=== PATIENT | male | born 1985 | race Two or more races ===

== ENCOUNTER 2018-02-05 14:46 | Emergency (ER) | payer SELFPAY ==
[2018-02-05] MEDS ORDERED: Sodium Chloride 0.9% 1,000 ML IV ONE (15:25)
[2018-02-05] MEDS ORDERED: Multivitamin Inj 10 ML, Thiamine HCL 100 MG, Magnesium Sulfate 2 GM, Folic Acid 1 MG in... IV ONE (15:29)
--- NOTE | 2018-02-05 15:32 | ED Physician Chart ---
ED Chief Complaint/HPI - Patient Information Date Seen:: 02/05/18 Time Seen:: 15:15 Chief Complaint:: epigastric pain History of Present Illness:: Patient brought in by EMT ambulance complaining of epigastric pain. Patient drank 1 pint of whiskey this morning. He vomited twice and had 3 times diarrhea today. Historian:: Patient ED Review of Systems - Review of Systems General/Constitutional: No fever, No chills, No weight loss, No weakness, No diaphoresis, No edema, No loss of appetite Skin: No skin lesions, No rash, No bruising Head: No headache, No light-headedness Eyes: No loss of vision, No pain, No diplopia ENT: No earache, No nasal drainage, No sore throat, No tinnitus Neck: No neck pain, No swelling, No thyromegaly, No stiffness, No mass noted Cardio Vascular: No chest pain, No palpitations, No PND, No orthopnea, No edema Pulmonary: No SOB, No cough, No sputum, No wheezing GI: Nausea, Vomiting, Diarrhea, No pain, No melena, No hematochezia, No constipation, No hematemesis G/U: No dysuria, No frequency, No hematuria Musculoskeletal: No bone or joint pain, No back pain, No muscle pain Endocrine: No polyuria, No polydipsia Psychiatric: No prior psych history, No depression, No anxiety, No suicidal ideation Hematopoietic: No bruising, No lymphadenopathy Allergic/Immuno: No urticaria, No angioedema Neurological: No syncope, No focal symptoms, No weakness, No paresthesia, No headache, No seizure, No dizziness, No confusion, No vertigo ED Past Medical History - Past Medical History Past Medical History: DM Family History: Diabetes Melitus Social History: Non Smoker, Alcohol Surgical History: other (right eye for cyst at age 1) Psychiatricy History: None Medication: Reviewed Family Medical History - Family Member Father Ethnicity: Living Status: Other Medical History: PANCREATIC CA ED Physical Exam - Physical Examination General/Constitutional: Awake, Well-developed, well-nourished, Alert, No distress, GCS 15, Non-toxic appearing, Ambulatory Head: Atraumatic Eyes: Lids, conjuctiva normal, PERRL, EOMI Skin: Nl inspection, No rash, No skin lesions, No ecchymosis, Well hydrated, No lymphadenopathy ENMT: External ears, nose nl, Nasal exam nl, Lips, teeth, gums nl Neck: Nontender, Full ROM w/o pain, No JVD, No nuchal rigidity, No bruit, No mass, No stridor Respiratory: Nl effort/Exclusion, Clear to Auscultation, No Wheeze/Rhonchi/Rales Cardio Vascular: RRR, No murmur, gallop, rubs, NL S1 S2 GI: No organomegaly, No hernia, Normal BS's, Nondistended, No mass/bruits, No McBurney tenderness Other GI comments:: Epigastric tenderness : No CVA tenderness Extremities: No tenderness or effusion, Full ROM, normal strength in all extremities, No edema, Normal digits & nails Neuro/Psych: Alert/oriented, DTR's symmetric, Normal sensory exam, Normal motor strength, Judgement/insight normal, Mood normal, Normal gait, No focal deficits Misc: Normal back, No paraspinal tenderness ED Labs/Radiology/EKG Results - Lab Results Results: Laboratory Results - last 24 hr 02/05/18 02/05/18 02/05/18 15:40 15:40 15:40 WBC 4.6 L RBC 4.69 Hgb 15.9 Hct 46.6 MCV 99.3 H MCH 33.9 H MCHC Differential 34.2 RDW 13.6 Plt Count 208 MPV 6.8 Neutrophils % 64.2 Lymphocytes % 22.5 Monocytes % 11.1 H Eosinophils % 0.5 Basophils % 1.7 Sodium 142 Potassium 3.8 Chloride 101 Carbon Dioxide 30.1 Anion Gap 14.7 BUN 6 L Creatinine 0.6 L Est GFR ( Amer) > 60.0 Est GFR (Non-Af Amer) > 60.0 BUN/Creatinine Ratio 10.0 Glucose 118 H Calcium 9.0 Magnesium 2.0 Lipase Ethyl Alcohol 465 H 02/05/18 15:40 WBC RBC Hgb Hct MCV MCH MCHC Differential RDW Plt Count MPV Neutrophils % Lymphocytes % Monocytes % Eosinophils % Basophils % Sodium Potassium Chloride Carbon Dioxide Anion Gap BUN Creatinine Est GFR ( Amer) Est GFR (Non-Af Amer) BUN/Creatinine Ratio Glucose Calcium Magnesium Lipase 34 Ethyl Alcohol ED Assessment - Assessment General Assessment: Patient ambulated normally in the emergency department and spoke normally without any slurring of speech. Patient requested Librium and I will give him 50 mg orally before discharge ED Septic Shock - . Is Septic Shock (SBP<90, OR Lactate>4 mmol\L) present?: No ED Reassessment (Disposition) - Reassessment Reassessment Condition:: Improved - Diagnosis Diagnosis:: Acute alcohol intoxication; acute and chronic alcohol abuse - Aftercare/Follow up Instructions Aftercare/Follow-Up Instructions:: Refer to Discharge Instructions - Patient Disposition Discharge/Transfer:: Home Condition at Disposition:: Stable, Improved
[2018-02-05 15:54] LABS: % BASOPHILS 1.7 % (0.0-2.0); % EOSINOPHILS 0.5 % (0.0-5.0); % LYMPHOCYTES 22.5 % (20.0-50.0); % MONOCYTES 11.1 % (2.0-10.0); % NEUTROPHILS 64.2 % (40.0-80.0); BASOPHILE ABSOLUTE 0.1 Th/cumm (0-0.2); HEMATOCRIT 46.6 % (41.0-60); HEMOGLOBIN 15.9 gm/dL (12-16); MEAN CELL VOLUME 99.3 fl (80-99); MEAN CORPUSCULAR HEMOGLOBIN 33.9 pg (26.0-30.0); MEAN CORPUSCULAR HGB CONC 34.2 pg (28.0-36.0); MEAN PLATELET VOLUME 6.8 fl; MONOCYTE ABSOLUTE 0.5 Th/cmm (0.3-1.0); PLATELET COUNT 208 Th/cmm (150-400); RED BLOOD COUNT 4.69 Mil/cmm (4.30-5.70); RED CELL DISTRIBUTION WIDTH 13.6 % (11.5-20.0); WHITE BLOOD COUNT 4.6 Th/cmm (4.8-10.8)
[2018-02-05 16:10] LABS: ANION GAP 14.7 (7.0-16.0); BUN - UREA NITROGEN 6 mg/dL (7-25); CARBON DIOXIDE 30.1 mEq/L (21.0-31.0); CHLORIDE 101 mEq/L (98-107); CREATININE - SERUM 0.6 mg/dL (0.7-1.3); GFR AFRICAN-AMERICAN > 60.0 ml/min (>90); GFR NON AFRICAN-AMERICAN > 60.0 ml/min; GLUCOSE 118 mg/dL (70-105); POTASSIUM SERUM 3.8 mEq/L (3.5-5.1); SODIUM SERUM 142 mEq/L (136-145)
== END 2018-02-05 20:10 | disposition home or self-care (01) ==
LOC: ER 14:46
DX: F10.129 Alcohol abuse with intoxication, unspecified (principal); Y90.8 Blood alcohol level of 240 mg/100 ml or more; R10.13 Epigastric pain; R11.2 Nausea with vomiting, unspecified; R19.7 Diarrhea, unspecified; E11.9 Type 2 diabetes mellitus without complications
CPT/HCPCS: 99285; 96365; 96366; 36415; 85025; 80320; 83690; 83735; 80048; J3411; J3475; J7030; X6598; Z7610

== ENCOUNTER 2018-02-08 13:28 | Inpatient (IN) | payer MEDICAID ==
[2018-02-08] MEDS ORDERED: Multivitamin Inj 10 ML, Thiamine HCL 100 MG, Magnesium Sulfate 2 GM, Folic Acid 1 MG in... IV ONE (13:51)
[2018-02-08] MEDS ORDERED: Thiamine 100 mg/mL 2mL Vial ONE (14:13)
[2018-02-08] MEDS ORDERED: Magnesium Sulfate 1 gm/2 mL 2mL Vial IV ONE (14:14)
[2018-02-08 14:18] LABS: % BASOPHILS 1.5 % (0.0-2.0); % EOSINOPHILS 0.6 % (0.0-5.0); % LYMPHOCYTES 20.1 % (20.0-50.0); % MONOCYTES 10.3 % (2.0-10.0); % NEUTROPHILS 67.5 % (40.0-80.0); BASOPHILE ABSOLUTE 0.1 Th/cumm (0-0.2); HEMATOCRIT 43.4 % (41.0-60); MEAN CELL VOLUME 97.8 fl (80-99); MEAN CORPUSCULAR HEMOGLOBIN 33.8 pg (26.0-30.0); MEAN CORPUSCULAR HGB CONC 34.6 pg (28.0-36.0); MEAN PLATELET VOLUME 7.2 fl; MONOCYTE ABSOLUTE 0.5 Th/cmm (0.3-1.0); NEUTROPHILE ABSOLUTE 3.2 Th/cmm (1.8-8.0); PLATELET COUNT 140 Th/cmm (150-400); RED BLOOD COUNT 4.44 Mil/cmm (4.30-5.70); RED CELL DISTRIBUTION WIDTH 13.6 % (11.5-20.0); WHITE BLOOD COUNT 4.8 Th/cmm (4.8-10.8)
[2018-02-08] MEDS ORDERED: Multivitamin Inj 10 mL Vial IV ONE (14:18)
[2018-02-08 14:25] LABS: ALB/GLOB RATIO 1.3 (1.0-1.8); ALKALINE PHOSPHATASE 90 U/L (34-104); AMYLASE SERUM 185 U/L (29-103); ANION GAP 14.2 (7.0-16.0); BILIRUBIN,TOTAL 2.1 mg/dL (0.3-1.0); BUN - UREA NITROGEN 9 mg/dL (7-25); CALCIUM SERUM 8.8 mg/dL (8.6-10.3); CARBON DIOXIDE 28.4 mEq/L (21.0-31.0); CHLORIDE 102 mEq/L (98-107); CREATININE - SERUM 0.6 mg/dL (0.7-1.3); GFR AFRICAN-AMERICAN > 60.0 ml/min (>90); GFR NON AFRICAN-AMERICAN > 60.0 ml/min; GLUCOSE 119 mg/dL (70-105); LIPASE 41 U/L (11-82); MAGNESIUM 1.7 mg/dL (1.9-2.7); PHOSPHOROUS 3.6 mg/dL (2.5-5.0); POTASSIUM SERUM 3.6 mEq/L (3.5-5.1); SGOT 350 U/L (13-39); SGPT/ALT 110 U/L (7-52); SODIUM SERUM 141 mEq/L (136-145); TOTAL PROTEIN,SERUM 7.2 gm/dL (6.0-8.3)
[2018-02-08 14:49] LABS: INR 1.12 (0.5-1.4); PROTHROMBIN TIME (TEST) 11.5 SECONDS (9.5-11.5)
[2018-02-08] MEDS ORDERED: Pantoprazole 80 MG in Sodium Chloride 0.9% 100 ML IV ONE (14:49)
[2018-02-08] MEDS ORDERED: Pantoprazole 80 MG in Sodium Chloride 0.9% 100 ML IV SCH ×2 (15:00→20:15)
[2018-02-08 15:42] LABS: URINE BILIRUBIN MODERATE (NEGATIVE); URINE BLOOD NEGATIVE (NEGATIVE); URINE GLUCOSE (UA) NEGATIVE (NEGATIVE); URINE KETONE NEGATIVE (NEGATIVE); URINE LEUKOCYTE ESTERASE NEGATIVE (NEGATIVE); URINE MICROSCOPIC INDICATED? YES; URINE NITRATE POSITIVE (NEGATIVE); URINE PROTEIN 100 mg/dL (NEGATIVE); URINE SOURCE CLEAN C; URINE UROBILINOGEN >=8.0 E.U./dL (0.2 - 1.0)
[2018-02-08 15:46] LABS: URINE CLARITY HAZY (CLEAR); URINE COLOR YELLOW
[2018-02-08 15:52] LABS: URINE BACTERIA 2+ /hpf (NONE SEEN); URINE EPITHELIAL CELLS FEW /lpf (FEW); URINE RBC 0-2 /hpf (0-5)
[2018-02-08] MEDS ORDERED: Ciprofloxacin 400mg Premix PB 400 MG/200 ML BAG IV ONE (16:00)
--- NOTE | 2018-02-08 17:12 | ED Physician Chart ---
ED Chief Complaint/HPI - Patient Information Date Seen:: 02/08/18 Time Seen:: 13:56 Chief Complaint:: epigastric pain & hematemesis History of Present Illness:: epigastric pain & hematemesis in an alcoholic without a h/o varices (hx per fiance and patient). no melena or blood per rectum. Allergies:: Allergies Allergy/AdvReac Type Severity Reaction Status Date / Time Sulfa (Sulfonamide Allergy Verified 02/05/18 15:32 Antibiotics) Vitals:: Vital Signs - 8 hr 02/08/18 13:56 Temp 98.0 F HR 89 RR 17 BP 114/77 O2 Sat % 94 Historian:: Patient, Family Member, Friend, Medical Records Review:: Nurse's Note Reviewed ED Review of Systems - Review of Systems General/Constitutional: No fever, No chills, No weight loss, No weakness, No diaphoresis, No edema, No loss of appetite Skin: No skin lesions, No rash, No bruising Head: No headache, No light-headedness Eyes: No loss of vision, No pain, No diplopia ENT: No earache, No nasal drainage, No sore throat, No tinnitus Neck: No neck pain, No swelling, No thyromegaly, No stiffness, No mass noted Cardio Vascular: No chest pain, No palpitations, No PND, No orthopnea, No edema Pulmonary: No SOB, No cough, No sputum, No wheezing GI: Nausea, Vomiting, No diarrhea, Pain, No melena, No hematochezia, No constipation, Hematemesis G/U: No dysuria, No frequency, No hematuria Musculoskeletal: No bone or joint pain, No back pain, No muscle pain Endocrine: No polyuria, No polydipsia Psychiatric: No prior psych history, No depression, No anxiety, No suicidal ideation Hematopoietic: No bruising, No lymphadenopathy Allergic/Immuno: No urticaria, No angioedema Neurological: No syncope, No focal symptoms, No weakness, No paresthesia, No headache, No seizure, No dizziness, No confusion, No vertigo ED Past Medical History - Past Medical History Obtainable: Yes Past Medical History: Other (alcoholism; delirium tremens but has never seized or had respiratory arrest; h/o UGI bleed in the past (no scopes per fiance)) Family Medical History - Family Member Father Ethnicity: Living Status: ED Physical Exam - Physical Examination General/Constitutional: Awake, Alert, No distress, GCS 15, Non-toxic appearing, Ambulatory Other Gen/Cons comments:: overweight. smell of strong liquor on his breath. c/o epigastric pain. Head: Atraumatic Eyes: Lids, conjuctiva normal, PERRL, EOMI Skin: Nl inspection, No rash, No skin lesions, No ecchymosis, Well hydrated, No lymphadenopathy ENMT: External ears, nose nl Neck: Nontender, Full ROM w/o pain, No JVD, No nuchal rigidity, No bruit, No mass, No stridor Respiratory: Nl effort/Exclusion, Clear to Auscultation, No Wheeze/Rhonchi/Rales Cardio Vascular: RRR, No murmur, gallop, rubs, NL S1 S2 GI: No tenderness/rebounding/guarding, No organomegaly, No hernia, Normal BS's, Nondistended, No mass/bruits, No McBurney tenderness, Rectum exam nl Other GI comments:: No peritoneal signs. Nonspecific epigastric pain to palpation. Fat. No fluid wave appreciated. Hemoccult negative (with no obvious stool on my glove). : No CVA tenderness Extremities: No tenderness or effusion, Full ROM, normal strength in all extremities, No edema, Normal digits & nails Neuro/Psych: Alert/oriented, Normal sensory exam, Normal motor strength, Judgement/insight normal, Mood normal, Normal gait, No focal deficits Other Neuro/Psych comments:: fine tremor. Misc: Normal back, No paraspinal tenderness ED Labs/Radiology/EKG Results - Lab Results Results: Laboratory Tests 02/08/18 02/08/18 02/08/18 13:50 13:50 13:50 WBC 4.8 RBC 4.44 Hgb 15.0 Hct 43.4 MCV 97.8 MCH 33.8 H MCHC Differential 34.6 RDW 13.6 Plt Count 140 L MPV 7.2 Neutrophils % 67.5 Lymphocytes % 20.1 Monocytes % 10.3 H Eosinophils % 0.6 Basophils % 1.5 PT INR PTT (Actin FS) Sodium 141 Potassium 3.6 Chloride 102 Carbon Dioxide 28.4 Anion Gap 14.2 BUN 9 Creatinine 0.6 L Est GFR ( Amer) > 60.0 Est GFR (Non-Af Amer) > 60.0 BUN/Creatinine Ratio 15.0 Glucose 119 H Calcium 8.8 Phosphorus 3.6 Magnesium 1.7 L Total Bilirubin 2.1 H AST 350 H ALT 110 H Alkaline Phosphatase 90 Total Protein 7.2 Albumin 4.0 L Globulin 3.2 Albumin/Globulin Ratio 1.3 Amylase 185 H Lipase 41 TSH Urine Source Urine Color Urine Clarity Urine pH Ur Specific [place] Urine Protein Urine Glucose (UA) Urine Ketones Urine Blood Urine Nitrate Urine Bilirubin Urine Ictotest Urine Urobilinogen Ur Leukocyte Esterase Urine RBC Urine WBC Ur Epithelial Cells Urine Bacteria Urine Mucus Acetaminophen Ethyl Alcohol 392 H Blood Type O POSITIVE Antibody Screen NEGATIVE 02/08/18 02/08/18 02/08/18 13:50 15:00 15:05 WBC RBC Hgb Hct MCV MCH MCHC Differential RDW Plt Count MPV Neutrophils % Lymphocytes % Monocytes % Eosinophils % Basophils % PT 11.5 INR 1.12 PTT (Actin FS) 27.1 Sodium Potassium Chloride Carbon Dioxide Anion Gap BUN Creatinine Est GFR ( Amer) Est GFR (Non-Af Amer) BUN/Creatinine Ratio Glucose Calcium Phosphorus Magnesium Total Bilirubin AST ALT Alkaline Phosphatase Total Protein Albumin Globulin Albumin/Globulin Ratio Amylase Lipase TSH 1.57 Urine Source CLEAN C Urine Color YELLOW Urine Clarity HAZY Urine pH 8.0 Ur Specific [place] 1.020 Urine Protein 100 H Urine Glucose (UA) NEGATIVE Urine Ketones NEGATIVE Urine Blood NEGATIVE Urine Nitrate POSITIVE H Urine Bilirubin MODERATE H Urine Ictotest Not Reportable Urine Urobilinogen >=8.0 H Ur Leukocyte Esterase NEGATIVE Urine RBC 0-2 H Urine WBC 2-5 Ur Epithelial Cells FEW Urine Bacteria 2+ H Urine Mucus MANY Acetaminophen Ethyl Alcohol Blood Type Antibody Screen 02/08/18 15:05 WBC RBC Hgb Hct MCV MCH MCHC Differential RDW Plt Count MPV Neutrophils % Lymphocytes % Monocytes % Eosinophils % Basophils % PT INR PTT (Actin FS) Sodium Potassium Chloride Carbon Dioxide Anion Gap BUN Creatinine Est GFR ( Amer) Est GFR (Non-Af Amer) BUN/Creatinine Ratio Glucose Calcium Phosphorus Magnesium Total Bilirubin AST ALT Alkaline Phosphatase Total Protein Albumin Globulin Albumin/Globulin Ratio Amylase Lipase TSH Urine Source Urine Color Urine Clarity Urine pH Ur Specific [place] Urine Protein Urine Glucose (UA) Urine Ketones Urine Blood Urine Nitrate Urine Bilirubin Urine Ictotest Urine Urobilinogen Ur Leukocyte Esterase Urine RBC Urine WBC Ur Epithelial Cells Urine Bacteria Urine Mucus Acetaminophen < 10.0 L Ethyl Alcohol Blood Type Antibody Screen ED Assessment - Assessment General Assessment: 17:12 p.m. note: patient is feeling better. He has no tremor and his heart rate is 94. Assessment/Comments:: limited abdomen ultrasound: enlarged liver increased in echogeniticity; increased attenuation limits imaging of the posterior liver. Portal vein flow is hepatopedal. distended gallbladder measure 10.12 x 4.2 x 5.0 cm. Positive swift's. 1.5 cm non mobile gallbladder stone with sludge. Mostly obscured pancreatic head measuring approximately 2.3 cm. called and spoke with Dr. Garcia at 6:45 p.m. to admit the patient to the ICU.* * EKG from 18:47:43 p.m. on 02/08/2018: normal sinus rhythm, flipped t wave in AVR and V1. ED Septic Shock - . Is Septic Shock (SBP<90, OR Lactate>4 mmol\L) present?: No - <6hrs of presentation: Vital Signs: Vital Signs - 8 hr 02/08/18 13:56 Temp 98.0 F HR 89 RR 17 BP 114/77 O2 Sat % 94 ED Reassessment (Disposition) - Reassessment Reassessment Condition:: Improved - Diagnosis Diagnosis:: Upper GI bleed, no h/o varices Alcoholism Distended gallbladder with gallstone Elevated amylase and liver function tests Urinary tract infection Slight thrombocytopenia - Patient Disposition Discharge/Transfer:: Acute Care w/in this hosp Accepting Physician:: Dr. Garcia Time Called:: 18:45 p.m. Time Responded:: 18:45 Admitted to:: ICU Condition at Disposition:: Stable, Improved
[2018-02-08] MEDS ORDERED: Piperacillin Sodium/Tazobact 3.375 gm Vial IV ONE (17:26)
[2018-02-08 17:32] LABS: AMPHETAMINE URINE NEGATIVE (NEGATIVE); BARBITURATES URINE NEGATIVE (NEGATIVE); BENZODIAZEPINES QUAL URINE POSITIVE (NEGATIVE); CANNABINOID THC POSITIVE (NEGATIVE); COCAINE METABOLITE QUAL URINE NEGATIVE (NEGATIVE); METHADONE URINE NEGATIVE (NEGATIVE); METHAMPHETAMINES QUAL URINE NEGATIVE (NEGATIVE); OPIATES (MORPHINE) QUAL. URINE NEGATIVE (NEGATIVE); PHENCYCLIDINE (PCP) URINE NEGATIVE (NEGATIVE); TRICYCLICS (TCA) QUAL. URINE NEGATIVE (NEGATIVE)
--- NOTE | 2018-02-08 20:43 | Consultation ---
Consult Note - Consult Note Service Date: 02/08/18 Referring Physician: Rose Garcia Consult Note: PHYSICIAN Consultation Note: Date of Admission: 02/08/18 Purpose of Consultation: UTI Chief Complaint: Patient KATHY NIEVES was admitted to location Intensive Care Unit with GI BLEED, UTI, ABDOMINAL PAIN. History of Present Illness: 32-year-old male with a past medical history of for alcohol abuse, cirrhosis, history of variceal bleeding, admitted for abdominal pain and hematemesis. On initial evaluation patient was afebrile and WBC count 4800. Urinalysis on the HPI. He was started on Zosyn and ID consult was called for antibiotic management. Past Medical History: Allergies Allergy/AdvReac Type Severity Reaction Status Date / Time Sulfa (Sulfonamide Allergy Verified 02/05/18 15:32 Antibiotics) Vital Signs Temp 98.0 F 02/08/18 19:00 Pulse 80 02/08/18 19:47 Resp 16 02/08/18 19:47 BP 107/70 02/08/18 19:47 Pulse Ox 94 02/08/18 19:47 Intake & Output 02/08/18 02/08/18 02/09/18 06:59 18:59 06:59 Intake Total 1150 Balance 1150 Weight (lbs) 83.915 kg 83.915 kg Intake: Intake, IV Amount 1150 Multivitamin Inj 10 ml 1000 Thiamine HCL 100 mg Magnesium Sulfate 2 gm Folic Acid 1 mg In Sodium Chloride 0.9% 1,000 ml @ 250 mls/hr IV ONCE ONE Rx#:[id number] Pantoprazole 80 mg In 100 Sodium Chloride 0.9% 100 ml @ 10 mls/hr IV Q10H EFREN Rx#:[id number] Piperacillin Sodium/ 50 Tazobact 3.375 gm In Sodium Chloride 0.9% 50 ml @ 100 mls/hr IV X1 ONE Rx#:[id number] Other: Weight Source Patient stated Patient stated Laboratory Results - last 24 hr 02/08/18 02/08/18 02/08/18 13:50 13:50 13:50 WBC 4.8 RBC 4.44 Hgb 15.0 Hct 43.4 MCV 97.8 MCH 33.8 H MCHC Differential 34.6 RDW 13.6 Plt Count 140 L MPV 7.2 Neutrophils % 67.5 Lymphocytes % 20.1 Monocytes % 10.3 H Eosinophils % 0.6 Basophils % 1.5 PT INR PTT (Actin FS) Sodium 141 Potassium 3.6 Chloride 102 Carbon Dioxide 28.4 Anion Gap 14.2 BUN 9 Creatinine 0.6 L Est GFR ( Amer) > 60.0 Est GFR (Non-Af Amer) > 60.0 BUN/Creatinine Ratio 15.0 Glucose 119 H Calcium 8.8 Phosphorus 3.6 Magnesium 1.7 L Total Bilirubin 2.1 H AST 350 H ALT 110 H Alkaline Phosphatase 90 Total Protein 7.2 Albumin 4.0 L Globulin 3.2 Albumin/Globulin Ratio 1.3 Amylase 185 H Lipase 41 TSH Urine Source Urine Color Urine Clarity Urine pH Ur Specific [place] Urine Protein Urine Glucose (UA) Urine Ketones Urine Blood Urine Nitrate Urine Bilirubin Urine Ictotest Urine Urobilinogen Ur Leukocyte Esterase Urine RBC Urine WBC Ur Epithelial Cells Urine Bacteria Urine Mucus Stool Occult Blood Urine Opiates Screen Urine Methadone Screen Acetaminophen Ur Barbiturates Screen Ur Tricyclics Screen Ur Phencyclidine Scrn Amphetamines Screen U Methamphetamines Scrn U Benzodiazepines Scrn U Cocaine Metab Screen U Cannabinoids Screen Ethyl Alcohol 392 H Blood Type O POSITIVE Antibody Screen NEGATIVE 02/08/18 02/08/18 02/08/18 13:50 15:00 15:05 WBC RBC Hgb Hct MCV MCH MCHC Differential RDW Plt Count MPV Neutrophils % Lymphocytes % Monocytes % Eosinophils % Basophils % PT 11.5 INR 1.12 PTT (Actin FS) 27.1 Sodium Potassium Chloride Carbon Dioxide Anion Gap BUN Creatinine Est GFR ( Amer) Est GFR (Non-Af Amer) BUN/Creatinine Ratio Glucose Calcium Phosphorus Magnesium Total Bilirubin AST ALT Alkaline Phosphatase Total Protein Albumin Globulin Albumin/Globulin Ratio Amylase Lipase TSH 1.57 Urine Source CLEAN C Urine Color YELLOW Urine Clarity HAZY Urine pH 8.0 Ur Specific [place] 1.020 Urine Protein 100 H Urine Glucose (UA) NEGATIVE Urine Ketones NEGATIVE Urine Blood NEGATIVE Urine Nitrate POSITIVE H Urine Bilirubin MODERATE H Urine Ictotest Not Reportable Urine Urobilinogen >=8.0 H Ur Leukocyte Esterase NEGATIVE Urine RBC 0-2 H Urine WBC 2-5 Ur Epithelial Cells FEW Urine Bacteria 2+ H Urine Mucus MANY Stool Occult Blood Urine Opiates Screen Urine Methadone Screen Acetaminophen Ur Barbiturates Screen Ur Tricyclics Screen Ur Phencyclidine Scrn Amphetamines Screen U Methamphetamines Scrn U Benzodiazepines Scrn U Cocaine Metab Screen U Cannabinoids Screen Ethyl Alcohol Blood Type Antibody Screen 02/08/18 02/08/18 02/08/18 15:05 16:20 17:25 WBC RBC Hgb Hct MCV MCH MCHC Differential RDW Plt Count MPV Neutrophils % Lymphocytes % Monocytes % Eosinophils % Basophils % PT INR PTT (Actin FS) Sodium Potassium Chloride Carbon Dioxide Anion Gap BUN Creatinine Est GFR ( Amer) Est GFR (Non-Af Amer) BUN/Creatinine Ratio Glucose Calcium Phosphorus Magnesium Total Bilirubin AST ALT Alkaline Phosphatase Total Protein Albumin Globulin Albumin/Globulin Ratio Amylase Lipase TSH Urine Source Urine Color Urine Clarity Urine pH Ur Specific [place] Urine Protein Urine Glucose (UA) Urine Ketones Urine Blood Urine Nitrate Urine Bilirubin Urine Ictotest Urine Urobilinogen Ur Leukocyte Esterase Urine RBC Urine WBC Ur Epithelial Cells Urine Bacteria Urine Mucus Stool Occult Blood NEGATIVE Urine Opiates Screen NEGATIVE Urine Methadone Screen NEGATIVE Acetaminophen < 10.0 L Ur Barbiturates Screen NEGATIVE Ur Tricyclics Screen NEGATIVE Ur Phencyclidine Scrn NEGATIVE Amphetamines Screen NEGATIVE U Methamphetamines Scrn NEGATIVE U Benzodiazepines Scrn POSITIVE H U Cocaine Metab Screen NEGATIVE U Cannabinoids Screen POSITIVE H Ethyl Alcohol Blood Type Antibody Screen Home Medication Medication Instructions Recorded Type NK [No Home Meds] 02/08/18 History Current Medications Generic Name Dose Route Start Last Admin Trade Name Freq PRN Reason Stop Dose Admin Chlordiazepoxide 50 mg 02/08/18 21:00 Librium PO 04/09/18 20:59 TID EFREN Protocol Pantoprazole Sodium 80 mg/ 100 mls @ 25 mls/hr 02/08/18 20:15 Sodium Chloride IV 04/09/18 20:14 Q10H EFREN Piperacillin Sod/Tazobactam 50 mls @ 100 mls/hr 02/09/18 01:30 Sod 3.375 gm/ Sodium Chloride IV 04/10/18 01:29 Q8H [facility] Review of Systems: A 12 point ROS was reviewed with the pertinent positive and negatives noted in the HPI. Social History Smoking Status Never smoker Physical Exam: General: Comfortable not in acute distress. HEENT: Head: NC NT. Oral cavity: Moist, pink tongue. Eyes: Pallor is present. No icterus. Neck: Supple, no JVD no use of accessory neck muscles. Cardio: S1 and S2 within normal limits. Respiratory: CTAP. Abdominal: Soft, epigastric tenderness present bowel sounds present nondistended Genital/Urinary: Deferred. Extremities: No cyanosis, no clubbing, no edema. Neurological: Alert and awake. Oriented 3. Assessment: 1. UTI. 2. Cirrhosis. 3. GI bleed. 4. History of alcohol abuse. Plan: Continue current management.. Continue Zosyn. Follow up urine culture report and go from there. Signed, Clavin Puri M.D. [id number]/08/[id number]
[2018-02-09] MEDS: Pantoprazole 80 MG in Sodium Chloride 0.9% 100 ML IV SCH ×2 (00:30→10:30)
[2018-02-09 05:04] LABS: INR 1.07 (0.5-1.4); PROTHROMBIN TIME (TEST) 11.1 SECONDS (9.5-11.5)
[2018-02-09 05:28] LABS: ALB/GLOB RATIO 1.3 (1.0-1.8); ALBUMIN 3.7 gm/dL (4.2-5.5); ALKALINE PHOSPHATASE 79 U/L (34-104); AMYLASE SERUM 101 U/L (29-103); ANION GAP 14.7 (7.0-16.0); BILIRUBIN,DIRECT 0.93 mg/dL (0.0-0.2); BILIRUBIN,TOTAL 2.9 mg/dL (0.3-1.0); BUN - UREA NITROGEN 7 mg/dL (7-25); CALCIUM SERUM 8.7 mg/dL (8.6-10.3); CARBON DIOXIDE 26.1 mEq/L (21.0-31.0); CHLORIDE 102 mEq/L (98-107); CREATININE - SERUM 0.6 mg/dL (0.7-1.3); GFR AFRICAN-AMERICAN > 60.0 ml/min (>90); GFR NON AFRICAN-AMERICAN > 60.0 ml/min; GLUCOSE 77 mg/dL (70-105); LIPASE 35 U/L (11-82); POTASSIUM SERUM 3.8 mEq/L (3.5-5.1); SGOT 291 U/L (13-39); SGPT/ALT 93 U/L (7-52); SODIUM SERUM 139 mEq/L (136-145); TOTAL PROTEIN,SERUM 6.6 gm/dL (6.0-8.3)
[2018-02-09] MEDS ORDERED: Morphine Sulfate 2 mg/mL 1mL Syr IVP PRN (05:54)
--- NOTE | 2018-02-09 07:37 | Diagnostic Imaging Report ---
Exam: Ultrasound exam of the abdomen, limited HISTORY: Gastric pain abnormal amylase levels Findings: Real-time ultrasound examination abdomen limited performed multiple planes. The study demonstrates normal echogenicity liver parenchyma. The gallbladder distended with 1.5 cm calculus and sludge. The common bile duct measures 5 mm. Pancreas not seen. IMPRESSION Limited ultrasound examination of the abdomen demonstrates cholelithiasis, gallbladder is distended. Common bile duct measures 5 mm.
--- NOTE | 2018-02-09 07:39 | Diagnostic Imaging Report ---
Exam: CT examination abdomen. HISTORY: Pain. Total DLP equals 650 CTDI equals 12.0 Findings: Multiple contiguous thin section the abdomen pelvis obtained from lower thorax to pubic symphysis without the administration of oral or intravenous contrast material. No prior studies available comparison. The study demonstrates hepatomegaly with fatty infiltration liver parenchyma. The spleen is intact. The gallbladder is distended. The kidneys demonstrate no evidence of obstructive uropathy nephrolithiasis. The adrenal glands are normal. The visualized pancreas is intact. No free fluid is noted. There is no evidence of diverticular disease of diverticulitis. The bladder is intact. Bony structures demonstrate no evidence for lytic or blastic changes. IMPRESSION: Hepatomegaly, fatty infiltration liver parenchyma Distended gallbladder.
[2018-02-09 08:30] LABS: % BASOPHILS 0.3 % (0.0-2.0); % EOSINOPHILS 1.1 % (0.0-5.0); % LYMPHOCYTES 19.3 % (20.0-50.0); % MONOCYTES 8.3 % (2.0-10.0); EOSINOPHILE ABSOLUTE 0.1 Th/cmm (0.1-0.4); HEMOGLOBIN 14.2 gm/dL (12-16); LYMPHOCYTE ABSOLUTE 0.9 Th/cmm (1.5-3.0); MEAN CELL VOLUME 100.6 fl (80-99); MEAN CORPUSCULAR HGB CONC 33.8 pg (28.0-36.0); MEAN PLATELET VOLUME 8.4 fl; MONOCYTE ABSOLUTE 0.4 Th/cmm (0.3-1.0); NEUTROPHILE ABSOLUTE 3.2 Th/cmm (1.8-8.0); PLATELET COUNT 102 Th/cmm (150-400); RED BLOOD COUNT 4.18 Mil/cmm (4.30-5.70); RED CELL DISTRIBUTION WIDTH 13.4 % (11.5-20.0); WHITE BLOOD COUNT 4.6 Th/cmm (4.8-10.8)
--- NOTE | 2018-02-09 12:36 | Infectious Disease Prog Note ---
Infectious Disease Subjective - Review of Systems Service Date: 02/09/18 Subjective: No new change. No fever. Infectious Disease Objective - Results Result Diagrams: 02/10/18 04:05 02/10/18 04:05 Recent Labs: Laboratory Last Values WBC 4.6 Th/cmm (4.8-10.8) L 02/09/18 04:00 RBC 4.18 Mil/cmm (4.30-5.70) L 02/09/18 04:00 Hgb 14.2 gm/dL (12-16) 02/09/18 04:00 Hct 42.0 % (41.0-60) 02/09/18 04:00 MCV 100.6 fl (80-99) H 02/09/18 04:00 MCH 34.0 pg (26.0-30.0) H 02/09/18 04:00 MCHC Differential 33.8 pg (28.0-36.0) 02/09/18 04:00 RDW 13.4 % (11.5-20.0) 02/09/18 04:00 Plt Count 102 Th/cmm (150-400) L 02/09/18 04:00 MPV 8.4 fl 02/09/18 04:00 Neutrophils % 71.0 % (40.0-80.0) 02/09/18 04:00 Lymphocytes % 19.3 % (20.0-50.0) L 02/09/18 04:00 Monocytes % 8.3 % (2.0-10.0) 02/09/18 04:00 Eosinophils % 1.1 % (0.0-5.0) 02/09/18 04:00 Basophils % 0.3 % (0.0-2.0) 02/09/18 04:00 PT 11.1 SECONDS (9.5-11.5) 02/09/18 04:00 INR 1.07 (0.5-1.4) 02/09/18 04:00 PTT (Actin FS) 27.8 SECONDS (26.0-38.0) 02/09/18 04:00 Sodium 139 mEq/L (136-145) 02/09/18 04:00 Potassium 3.8 mEq/L (3.5-5.1) 02/09/18 04:00 Chloride 102 mEq/L (98-107) 02/09/18 04:00 Carbon Dioxide 26.1 mEq/L (21.0-31.0) 02/09/18 04:00 Anion Gap 14.7 (7.0-16.0) 02/09/18 04:00 BUN 7 mg/dL (7-25) 02/09/18 04:00 Creatinine 0.6 mg/dL (0.7-1.3) L 02/09/18 04:00 Est GFR ( Amer) > 60.0 ml/min (>90) 02/09/18 04:00 Est GFR (Non-Af Amer) > 60.0 ml/min 02/09/18 04:00 BUN/Creatinine Ratio 11.7 02/09/18 04:00 Glucose 77 mg/dL (70-105) 02/09/18 04:00 Calcium 8.7 mg/dL (8.6-10.3) 02/09/18 04:00 Phosphorus 3.6 mg/dL (2.5-5.0) 02/08/18 13:50 Magnesium 1.7 mg/dL (1.9-2.7) L 02/08/18 13:50 Total Bilirubin 2.9 mg/dL (0.3-1.0) H 02/09/18 04:00 Direct Bilirubin 0.93 mg/dL (0.0-0.2) H 02/09/18 04:00 AST 291 U/L (13-39) H 02/09/18 04:00 ALT 93 U/L (7-52) H 02/09/18 04:00 Alkaline Phosphatase 79 U/L (34-104) 02/09/18 04:00 Total Protein 6.6 gm/dL (6.0-8.3) 02/09/18 04:00 Albumin 3.7 gm/dL (4.2-5.5) L 02/09/18 04:00 Globulin 2.9 gm/dL 02/09/18 04:00 Albumin/Globulin Ratio 1.3 (1.0-1.8) 02/09/18 04:00 Amylase 101 U/L (29-103) 02/09/18 04:00 Lipase 35 U/L (11-82) 02/09/18 04:00 TSH 1.57 uIU/ml (0.34-5.60) 02/08/18 15:05 Urine Source CLEAN C 02/08/18 15:00 Urine Color YELLOW 02/08/18 15:00 Urine Clarity HAZY (CLEAR) 02/08/18 15:00 Urine pH 8.0 (4.6 - 8.0) 02/08/18 15:00 Ur Specific [place] 1.020 (1.005-1.030) 02/08/18 15:00 Urine Protein 100 mg/dL (NEGATIVE) H 02/08/18 15:00 Urine Glucose (UA) NEGATIVE mg/dL (NEGATIVE) 02/08/18 15:00 Urine Ketones NEGATIVE mg/dL (NEGATIVE) 02/08/18 15:00 Urine Blood NEGATIVE (NEGATIVE) 02/08/18 15:00 Urine Nitrate POSITIVE (NEGATIVE) H 02/08/18 15:00 Urine Bilirubin MODERATE (NEGATIVE) H 02/08/18 15:00 Urine Ictotest Not Reportable 02/08/18 15:00 Urine Urobilinogen >=8.0 E.U./dL (0.2 - 1.0) H 02/08/18 15:00 Ur Leukocyte Esterase NEGATIVE (NEGATIVE) 02/08/18 15:00 Urine RBC 0-2 /hpf (0-5) H 02/08/18 15:00 Urine WBC 2-5 /hpf (0-5) 02/08/18 15:00 Ur Epithelial Cells FEW /lpf (FEW) 02/08/18 15:00 Urine Bacteria 2+ /hpf (NONE SEEN) H 02/08/18 15:00 Urine Mucus MANY /lpf (FEW) 02/08/18 15:00 Stool Occult Blood NEGATIVE (NEGATIVE) 02/08/18 17:25 Urine Opiates Screen NEGATIVE (NEGATIVE) 02/08/18 16:20 Urine Methadone Screen NEGATIVE (NEGATIVE) 02/08/18 16:20 Acetaminophen < 10.0 ug/mL (10.0-30.0) L 02/08/18 15:05 Ur Barbiturates Screen NEGATIVE (NEGATIVE) 02/08/18 16:20 Ur Tricyclics Screen NEGATIVE (NEGATIVE) 02/08/18 16:20 Ur Phencyclidine Scrn NEGATIVE (NEGATIVE) 02/08/18 16:20 Amphetamines Screen NEGATIVE (NEGATIVE) 02/08/18 16:20 U Methamphetamines Scrn NEGATIVE (NEGATIVE) 02/08/18 16:20 U Benzodiazepines Scrn POSITIVE (NEGATIVE) H 02/08/18 16:20 U Cocaine Metab Screen NEGATIVE (NEGATIVE) 02/08/18 16:20 U Cannabinoids Screen POSITIVE (NEGATIVE) H 02/08/18 16:20 Ethyl Alcohol 88 mg/dL (0-10) H 02/09/18 04:00 Blood Type O POSITIVE 02/08/18 13:50 Antibody Screen NEGATIVE 02/08/18 13:50 - Physical Exam Vitals and I&O: Vital Signs Temp 97.2 F 02/09/18 12:00 Pulse 85 02/09/18 12:00 Resp 17 02/09/18 12:00 BP 119/78 02/09/18 12:00 Pulse Ox 94 02/09/18 12:00 Intake & Output 02/08/18 02/09/18 02/09/18 18:59 06:59 18:59 Intake Total 1225 100 Balance 1225 100 Weight (lbs) 83.915 kg 71.94 kg Intake: Intake, IV Amount 1200 100 Multivitamin Inj 10 ml 1000 Thiamine HCL 100 mg Magnesium Sulfate 2 gm Folic Acid 1 mg In Sodium Chloride 0.9% 1,000 ml @ 250 mls/hr IV ONCE ONE Rx#:[id number] Pantoprazole 80 mg In 100 Sodium Chloride 0.9% 100 ml @ 10 mls/hr IV Q10H [facility] Rx#:[id number] Pantoprazole 80 mg In 100 Sodium Chloride 0.9% 100 ml @ 10 mls/hr IV Q10H [facility] Rx#:[id number] Piperacillin Sodium/ 50 Tazobact 3.375 gm In Sodium Chloride 0.9% 50 ml @ 100 mls/hr IV X1 ONE Rx#:[id number] cefTRIAXone 1 gm In 50 Dextrose 5% 50 ml @ 100 mls/hr IV Q24H [facility] Rx#: [id number] Oral 25 Other: # Voids 3 # Bowel Movements 2 Stool Characteristics Liquid Weight Source Patient stated Bedscale Active Medications: Current Medications Chlordiazepoxide (Librium) 50 mg PO TID [facility]; Protocol Stop: 04/09/18 20:59 Last Admin: 02/09/18 09:10 Dose: 50 mg Ceftriaxone Sodium 1 gm/ (Dextrose) 50 mls @ 100 mls/hr IV Q24H [facility] Stop: 04/09/18 20:59 Last Infusion: 02/08/18 23:05 Dose: Infused Pantoprazole Sodium 80 mg/ (Sodium Chloride) 100 mls @ 10 mls/hr IV Q10H [facility] Stop: 04/09/18 23:44 Last Admin: 02/09/18 10:30 Dose: 10 mls/hr Lorazepam (Ativan) 1 mg IVP Q4H PRN; Protocol PRN Reason: withdrawal symptom Stop: 04/10/18 05:52 Last Admin: 02/09/18 09:10 Dose: 1 mg Morphine Sulfate (Morphine) 1 mg IVP Q6HR PRN PRN Reason: Pain (Mild) Stop: 04/10/18 05:53 Ondansetron HCl (Zofran) 4 mg IV Q6H PRN PRN Reason: Nausea / Vomiting Stop: 04/10/18 08:38 General: no acute distress, well developed, well nourished HEENT: atraumatic, normocephalic, PERRLA, EOMI, moist mucous membrane Neck: supple, no thyromegaly Cardiovascular: S1S2, regular Lungs: clear to auscultation bilaterally, clear to percussion Abdomen: soft, no tender, no distended, no mass Extremities: no cyanosis, no clubbing, no edema Neurological: awake, alert, oriented Skin: intact Infectious Disease Assmt/Plan - Assessment Assessment: 1. UTI. 2. Cirrhosis. 3. GI bleed. 4. History of alcohol abuse. - Plan Plan: Continue current management.. Continue Zosyn. Follow up urine culture report and go from there.
[2018-02-09] MEDS ORDERED: Probiotic Screen MC PRN (12:40)
[2018-02-09] MEDS ORDERED: Lactobacillus Rhamnosus GG 15 Billion CFU CAP.SPRINK PO SCH (14:00)
[2018-02-09] MEDS ORDERED: Lidocaine 2% Gel 5 mL TP ONE (15:40)
[2018-02-09] MEDS ORDERED: Propofol 10 mg/mL 20mL Vial **SURGERY USE ONLY IV ONE (15:40)
--- NOTE | 2018-02-09 16:30 | Operative Report ---
DATE OF SURGERY: 02/09/2018 INPATIENT GASTROINTESTINAL PROCEDURE PROCEDURE: EGD with biopsy. REFERRING PHYSICIAN: Dr. Garcia. REASON FOR PROCEDURE: Hematemesis, epigastric pain. CONSENT: Risks, benefits, alternatives, nature, indication, possible outcomes were discussed. Mentioned bleeding, infection, perforation, , disability, cardiopulmonary distress and arrest, missed lesion and cancers, need for surgery. The patient expressed understanding and provided informed consent. PREOPERATIVE DIAGNOSIS: Hematemesis, epigastric pain. POSTOPERATIVE DIAGNOSIS: Gastritis. MEDICATIONS: MAC provided by anesthesiologist. DESCRIPTION OF PROCEDURE: The patient was placed in left side. Upper endoscope advanced from mouth and second portion of duodenum. Scope brought back in the stomach. Retroflexion view of fundus, cardia, lesser curvature. Scope was straightened. Biopsies taken. Scope was then removed. COMPLICATIONS: None. FINDINGS: 1. GE junction at 40 cm with a normal esophagus, no evidence of esophageal varices. 2. Gastritis, status post biopsy. 3. Normal duodenum. RECOMMENDATIONS: 1. Provide the patient with proton pump inhibitor. 2. Follow H and H. 3. Avoid alcohol and consider joining AA. Thank you for allowing me to participate. Please call me if any questions. JOB# [id number]
--- NOTE | 2018-02-09 18:01 | Consultation ---
DATE OF CONSULTATION: 02/09/2018 INPATIENT GASTROINTESTINAL CONSULTATION REFERRING PHYSICIAN: Dr. Garcia. REASON FOR CONSULTATION: Epigastric pain, hematemesis. HISTORY OF PRESENT ILLNESS: This is a 32-year-old male with an episode of epigastric pain, hematemesis. Does consume alcohol, but reports no known history of cirrhosis. Denies having any active bleeding. Denies melena or hematochezia. PAST MEDICAL HISTORY: None. PAST SURGICAL HISTORY: None to add recently. FAMILY HISTORY: Noncontributory. SOCIAL HISTORY: Drinks alcohol. No IV drug uses. There is no tobacco. ALLERGIES: SULFA. CURRENT MEDICATIONS: Ceftriaxone, Librium, Ativan, probiotics, morphine, Zofran, and Protonix drip. REVIEW OF SYSTEMS: Ten point review of system was performed and pertinent positive epigastric pain and hematemesis. All other systems were otherwise negative. PHYSICAL EXAMINATION: VITAL SIGNS: Temperature 97.2, breathing 18, pulse of 100, blood pressure 109/55, and satting 95%. GENERAL: In no apparent distress. EYES: Anicteric. Normal conjunctivae. HEENT: Normocephalic, atraumatic. Moist mucous membranes. NECK: Soft, supple. CHEST: Clear. No effort. CARDIOVASCULAR: Regular rate and rhythm. ABDOMEN: Soft, nondistended, mildly tender epigastrium. No rebound or guarding. SKIN: Warm, dry. EXTREMITIES: Reveal no cyanosis. PSYCHOLOGIC: Alert and oriented x3. LABORATORY DATA: Show white count of 4.6, hemoglobin 14.2, and platelets of 102. INR is 1.07. Total bilirubin is 2.9, AST 291, ALT 93, alkaline phosphatase 79, lipase 35. Alcohol level was positive. Abdominal ultrasound showed gallstones, common bile duct measured [address] abdomen and pelvis showed hepatomegaly, fatty liver, distended gallbladder. IMPRESSION: This is a 32-year-old male with epigastric pain, hematemesis, cause could be from peptic ulcer disease, esophagitis, and gastroesophageal reflux disease. The pain may be also due to gallstones. The patient does have evidence of fatty liver, could be from a combination of being overweight and alcohol consumption. PLAN: 1. EGD. 2. HIDA scan is pending. 3. Continue Protonix. 4. Follow H and H. 5. Avoid alcohol and consider joining AA. 6. Graduate weight loss or fatty liver. Thank you for allowing me to participate. Please call me if any questions. [facility]# [id number]
--- NOTE | 2018-02-09 21:37 | History & Physical ---
ADMIT DATE: 02/08/2018 HISTORY OF PRESENT ILLNESS: The patient was admitted for epigastric pain and hematemesis to the ICU. The patient is known to have a history of alcohol abuse and had been drinking, question whether he had history of varices in the past, complaining of chronic pain. No chest pain. No other pain except for the upper epigastric pain. PAST MEDICAL HISTORY: History of alcoholism. PHYSICAL EXAMINATION: GENERAL: Alert, oriented, and not in acute condition. VITAL SIGNS: Stable. HEAD: Normal. ENT: Normal. NECK: Supple, nontender. LUNGS: Clear. CARDIOVASCULAR SYSTEM: S1, S2. ABDOMEN: Soft. Bowel sounds present. CENTRAL NERVOUS SYSTEM: Grossly normal. DIAGNOSES: Severe epigastric pain, gastritis, upper esophageal bleeding, urinary tract infection, and history of alcoholism. PLAN: The patient is being admitted and was given a banana bag. I will have the GI doctor see the patient and I will put him on Protonix. I will follow the patient while inpatient. JOB# [id number]
[2018-02-10 04:35] LABS: % BASOPHILS 0.8 % (0.0-2.0); % LYMPHOCYTES 17.5 % (20.0-50.0); % MONOCYTES 12.6 % (2.0-10.0); % NEUTROPHILS 68.1 % (40.0-80.0); EOSINOPHILE ABSOLUTE 0.1 Th/cmm (0.1-0.4); HEMATOCRIT 41.2 % (41.0-60); LYMPHOCYTE ABSOLUTE 0.9 Th/cmm (1.5-3.0); MEAN CELL VOLUME 99.3 fl (80-99); MEAN CORPUSCULAR HEMOGLOBIN 33.6 pg (26.0-30.0); MEAN CORPUSCULAR HGB CONC 33.9 pg (28.0-36.0); MONOCYTE ABSOLUTE 0.7 Th/cmm (0.3-1.0); NEUTROPHILE ABSOLUTE 3.6 Th/cmm (1.8-8.0); PLATELET COUNT 72 Th/cmm (150-400); RED BLOOD COUNT 4.15 Mil/cmm (4.30-5.70); RED CELL DISTRIBUTION WIDTH 13.4 % (11.5-20.0); WHITE BLOOD COUNT 5.3 Th/cmm (4.8-10.8)
[2018-02-10 05:12] LABS: ALB/GLOB RATIO 1.3 (1.0-1.8); ALBUMIN 3.9 gm/dL (4.2-5.5); ALKALINE PHOSPHATASE 74 U/L (34-104); ANION GAP 13.9 (7.0-16.0); BILIRUBIN,TOTAL 4.3 mg/dL (0.3-1.0); BUN - UREA NITROGEN 7 mg/dL (7-25); CALCIUM SERUM 9.4 mg/dL (8.6-10.3); CARBON DIOXIDE 27.8 mEq/L (21.0-31.0); CHLORIDE 95 mEq/L (98-107); CREATININE - SERUM 0.7 mg/dL (0.7-1.3); GFR AFRICAN-AMERICAN > 60.0 ml/min (>90); GFR NON AFRICAN-AMERICAN > 60.0 ml/min; GLUCOSE 77 mg/dL (70-105); MAGNESIUM 1.8 mg/dL (1.9-2.7); PHOSPHOROUS 3.6 mg/dL (2.5-5.0); POTASSIUM SERUM 3.7 mEq/L (3.5-5.1); SGOT 179 U/L (13-39); SGPT/ALT 74 U/L (7-52); SODIUM SERUM 133 mEq/L (136-145); TOTAL PROTEIN,SERUM 6.9 gm/dL (6.0-8.3)
--- NOTE | 2018-02-11 20:35 | Pathology Report ---
[id number] Collection Date: 02/09/2018 Surgeon: Dr. Darlene Snyder Specimen Description: 1. Duodenum biopsy 2. Antrum biopsy Gross Description: Part I: Received in formalin are two bradshaw soft tissue fragments, ranging from 0.1 to 0.2 cm in greatest dimension. Totally submitted in one cassette labeled A. Gross Description: Part II: Received in formalin are two bradshaw soft tissue fragments, ranging from 0.1 to 0.2 cm in greatest dimension. Totally submitted in one cassette labeled B. Microscopic Description: Part I: The histologic sections show duodenal mucosa with intact intestinal villi, showing no evidence for villous abnormality. Diagnosis: Part I: No evidence for celiac disease/sprue. Microscopic Description: Part II: The histologic sections show gastric mucosa with mild chronic inflammation, consisting of lymphocytes and plasma cells. The Giemsa stain shows no evidence for Helicobacter pylori. Diagnosis: Part II: 1. Mild chronic gastritis, antrum biopsy. 2. The Giemsa stain is negative for Helicobacter pylori. [facility]# [id number] [facility]
--- NOTE | 2018-02-23 18:57 | Discharge Summary ---
DATE OF DISCHARGE: 02/10/2018 HOSPITAL COURSE: The patient admitted to [facility] on 02/08/2018. The patient has signed off AMA on 02/10/2018. This patient was admitted, initially came to the ER with severe epigastric pain, gastritis, upper esophageal bleed, UTI, history of alcoholism and was admitted to the ICU for a GI consult. The patient improved. The patient was in stable condition, but ____ the patient left AMA on 02/10/2018. FINAL DIAGNOSES: Status post gastrointestinal bleed, status post gastritis, status post alcoholism. CONDITION AT THE TIME OF AMA: Stable. [facility]# [id number]
== END 2018-02-10 08:30 | disposition left against medical advice (07) | DRG 241 ==
LOC: ER 13:28 → ICU 19:46
PROVIDERS: ADMIT Internal Medicine; ATTEND Internal Medicine
PROC: 0DB68ZX Excision of Stomach, Via Natural or Artificial Opening Endoscopic, Diagnostic (ICD-10-PCS; principal; 2018-02-09)
DX: K29.71 Gastritis, unspecified, with bleeding (principal); D69.6 Thrombocytopenia, unspecified; K74.60 Unspecified cirrhosis of liver; N39.0 Urinary tract infection, site not specified; Y90.8 Blood alcohol level of 240 mg/100 ml or more; F10.20 Alcohol dependence, uncomplicated; K82.8 Other specified diseases of gallbladder; K80.80 Other cholelithiasis without obstruction; K76.0 Fatty (change of) liver, not elsewhere classified; Z53.21 Procedure and treatment not carried out due to patient leaving prior to being seen by health care provider; Z88.2 Allergy status to sulfonamides
CPT/HCPCS: 36415-UA; 76705-TC; 80048-TC; 80053-TC; 80076-TC; 80307; 80320-TC; 80329-TC; 81001-TC; 82150-TC; 82270-TC; 83690-TC; 83735-TC; 84100-TC; 84443-TC; 85025-TC; 85610-TC; 85730-TC; 86850-TC; 86900-TC; 86901-TC; 87086-90; 93005; 96375; C9113; J0696; J0744; J2060; J2543; J2704; J3411; J3475; J3490; J7030; X6226; X6598; Z7610

== ENCOUNTER 2018-02-20 07:10 | Emergency (ER) | payer MEDICAID ==
[2018-02-20] MEDS ORDERED: Sodium Chloride 0.9% 1,000 ML IV ONE ×2 (07:16→07:27)
--- NOTE | 2018-02-20 07:23 | ED Physician Chart ---
ED Chief Complaint/HPI - Patient Information Date Seen:: 02/20/18 Time Seen:: 07:18 Chief Complaint:: epigastric pain History of Present Illness:: 32 yr old male with epigastric pain nausea for one day moderate has problem with alcohol has been drinking all night not homeless lost his 5 day old daughter and never saw her while he was incarcerated Allergies:: Allergies Allergy/AdvReac Type Severity Reaction Status Date / Time Sulfa (Sulfonamide Allergy Verified 02/05/18 15:32 Antibiotics) ED Review of Systems - Review of Systems General/Constitutional: No fever Skin: No skin lesions Head: No headache Eyes: No loss of vision ENT: No earache Neck: No neck pain Cardio Vascular: No chest pain Pulmonary: No SOB GI: Nausea, No vomiting G/U: No dysuria Musculoskeletal: No bone or joint pain Psychiatric: Depression Neurological: No syncope ED Past Medical History - Past Medical History Past Medical History: Other (etoh abuse) Family Medical History - Family Member Father History Unknown: Yes Ethnicity: Living Status: Still Living Hx Family Cancer: No Hx Family Coronary Artery Disease: No Hx Family Congestive Heart Failure: No Hx Family Hypertension: No Hx Family Stroke: No Hx Family Diabetes: No Hx Family Seizures: No Hx Family Dementia: No Hx Family AIDS: No Hx Family HIV: No Hx Family COPD: No Hx Family Hepatitis: No Hx Family Psychiatric Problems: No Hx Family Tuberculosis: No ED Physical Exam - Physical Examination General/Constitutional: Alert Head: Atraumatic Eyes: Lids, conjuctiva normal Skin: No rash ENMT: External ears, nose nl Neck: Nontender Respiratory: Nl effort/Exclusion, Clear to Auscultation Cardio Vascular: No murmur, gallop, rubs GI: No tenderness/rebounding/guarding : No CVA tenderness Extremities: No tenderness or effusion Neuro/Psych: Alert/oriented ED Septic Shock - . Is Septic Shock (SBP<90, OR Lactate>4 mmol\L) present?: No ED Reassessment (Disposition) - Reassessment Reassessment Condition:: Improved - Diagnosis Diagnosis:: etoh abuse epigastric pain - Aftercare/Follow up Instructions Aftercare/Follow-Up Instructions:: Counseled pt regarding lab results/diagnosis & need follow up - Patient Disposition Discharge/Transfer:: Home Condition at Disposition:: Stable
[2018-02-20] MEDS ORDERED: Multivitamin Inj 10 ML, Thiamine HCL 100 MG, Magnesium Sulfate 2 GM, Folic Acid 1 MG in... IV ONE (07:26)
[2018-02-20] MEDS ORDERED: Pantoprazole 80 MG in Sodium Chloride 0.9% 100 ML IV ONE (07:27)
[2018-02-20 07:47] LABS: % EOSINOPHILS 0.4 % (0.0-5.0); % LYMPHOCYTES 22.6 % (20.0-50.0); BASOPHILE ABSOLUTE 0.1 Th/cumm (0-0.2); MEAN PLATELET VOLUME 6.7 fl; MONOCYTE ABSOLUTE 0.6 Th/cmm (0.3-1.0)
[2018-02-20 07:53] LABS: URINE SOURCE CLEAN C
[2018-02-20 07:55] LABS: % MONOCYTES 11.2 % (2.0-10.0); % NEUTROPHILS 64.8 % (40.0-80.0); HEMATOCRIT 47.2 % (41.0-60); LYMPHOCYTE ABSOLUTE 1.3 Th/cmm (1.5-3.0); MEAN CELL VOLUME 99.3 fl (80-99); MEAN CORPUSCULAR HEMOGLOBIN 33.7 pg (26.0-30.0); NEUTROPHILE ABSOLUTE 3.6 Th/cmm (1.8-8.0); PLATELET COUNT 173 Th/cmm (150-400); RED BLOOD COUNT 4.75 Mil/cmm (4.30-5.70); RED CELL DISTRIBUTION WIDTH 13.4 % (11.5-20.0); WHITE BLOOD COUNT 5.6 Th/cmm (4.8-10.8)
[2018-02-20 07:57] LABS: URINE BILIRUBIN SMALL (NEGATIVE); URINE BLOOD NEGATIVE (NEGATIVE); URINE GLUCOSE (UA) NEGATIVE (NEGATIVE); URINE KETONE NEGATIVE (NEGATIVE); URINE LEUKOCYTE ESTERASE NEGATIVE (NEGATIVE); URINE NITRATE NEGATIVE (NEGATIVE); URINE PROTEIN 100 mg/dL (NEGATIVE); URINE UROBILINOGEN >=8.0 E.U./dL (0.2 - 1.0)
[2018-02-20 07:58] LABS: ALB/GLOB RATIO 1.2 (1.0-1.8); ALBUMIN 4.6 gm/dL (4.2-5.5); ALKALINE PHOSPHATASE 107 U/L (34-104); ANION GAP 14.6 (7.0-16.0); BILIRUBIN,TOTAL 1.4 mg/dL (0.3-1.0); BUN - UREA NITROGEN 6 mg/dL (7-25); CALCIUM SERUM 9.1 mg/dL (8.6-10.3); CHLORIDE 98 mEq/L (98-107); CREATININE - SERUM 0.7 mg/dL (0.7-1.3); GFR AFRICAN-AMERICAN > 60.0 ml/min (>90); GFR NON AFRICAN-AMERICAN > 60.0 ml/min; GLUCOSE 147 mg/dL (70-105); POTASSIUM SERUM 3.6 mEq/L (3.5-5.1); SGOT 356 U/L (13-39); SGPT/ALT 135 U/L (7-52); SODIUM SERUM 140 mEq/L (136-145); TOTAL PROTEIN,SERUM 8.3 gm/dL (6.0-8.3)
[2018-02-20 08:12] LABS: URINE CLARITY HAZY (CLEAR); URINE COLOR DARK YELLOW; URINE MICROSCOPIC INDICATED? YES
[2018-02-20 08:13] LABS: URINE BACTERIA NONE SEEN /hpf (NONE SEEN); URINE EPITHELIAL CELLS OCCASIONAL /lpf (FEW); URINE RBC 0-2 /hpf (0-5); URINE WBC 0-2 /hpf (0-5)
--- NOTE | 2018-02-20 11:14 | Diagnostic Imaging Report ---
Abdominal ultrasound (limited, gallbladder) HISTORY: Pain Exam is limited to evaluation of the gallbladder. There is a dilated distended gallbladder. There is an approximate 0.8 cm intraluminal echogenic density with acoustic shadowing. Findings consistent with cholelithiasis. Additional low-level intraluminal echoes are seen within the dependent region of the gallbladder consistent with "sludge". No biliary dilatation (common bile duct is fibroid is). Pancreas cannot be seen due to bowel gas. IMPRESSION: 1. Limited exam to the gallbladder region 2. Findings consistent with cholelithiasis
== END 2018-02-20 12:53 | disposition home or self-care (01) ==
LOC: ER 07:10
DX: K76.9 Liver disease, unspecified (principal); K82.9 Disease of gallbladder, unspecified; F10.10 Alcohol abuse, uncomplicated; Z88.2 Allergy status to sulfonamides
CPT/HCPCS: 99285; 96365; 96375; 76705; 36415; 85025; 81001; 80053; 87040 ×2; C9113; J2060; J2405; J3411; J3475; J7030; X6598

== ENCOUNTER 2018-03-07 01:16 | Emergency (ER) | payer MEDICAID ==
--- NOTE | 2018-03-07 01:59 | ED Physician Chart ---
ED Chief Complaint/HPI - Patient Information Date Seen:: 03/07/18 Time Seen:: 01:53 Chief Complaint:: abd pain History of Present Illness:: 32 yr old male with hx of pancreatitis who started drinking again today with pain eigastrium with nv and one episode of small hematemesis Allergies:: Allergies Allergy/AdvReac Type Severity Reaction Status Date / Time Sulfa (Sulfonamide Allergy Verified 02/05/18 15:32 Antibiotics) Vitals:: Vital Signs - 8 hr 03/07/18 01:29 Temp 97.6 F HR 101 RR 16 BP 126/77 O2 Sat % 100 ED Review of Systems - Review of Systems General/Constitutional: No fever Skin: No skin lesions Head: No headache Eyes: No loss of vision ENT: No earache Neck: No neck pain Cardio Vascular: No chest pain Pulmonary: No SOB GI: Nausea, Vomiting, No diarrhea G/U: No dysuria Musculoskeletal: No bone or joint pain Endocrine: No polyuria Hematopoietic: No bruising Allergic/Immuno: No urticaria Neurological: No syncope Family Medical History - Family Member Father History Unknown: Yes Ethnicity: Living Status: Still Living Hx Family Cancer: No Hx Family Coronary Artery Disease: No Hx Family Congestive Heart Failure: No Hx Family Hypertension: Yes Hx Family Stroke: No Hx Family Diabetes: Yes Hx Family Seizures: No Hx Family Dementia: No Hx Family AIDS: No Hx Family HIV: No Hx Family COPD: No Hx Family Hepatitis: No Hx Family Psychiatric Problems: No Hx Family Tuberculosis: No ED Septic Shock - . Is Septic Shock (SBP<90, OR Lactate>4 mmol\L) present?: No - <6hrs of presentation: Vital Signs: Vital Signs - 8 hr 03/07/18 01:29 Temp 97.6 F HR 101 RR 16 BP 126/77 O2 Sat % 100 ED Reassessment (Disposition) - Reassessment Reassessment:: abd pain - Diagnosis Diagnosis:: epigastric pain - Aftercare/Follow up Instructions Aftercare/Follow-Up Instructions:: Counseled pt regarding lab results/diagnosis & need follow up - Patient Disposition Discharge/Transfer:: Home Condition at Disposition:: Stable
[2018-03-07 02:41] LABS: ALB/GLOB RATIO 1.1 (1.0-1.8); ALBUMIN 3.9 gm/dL (4.2-5.5); ALKALINE PHOSPHATASE 116 U/L (34-104); AMYLASE SERUM 82 U/L (29-103); ANION GAP 15.8 (7.0-16.0); BILIRUBIN,TOTAL 0.9 mg/dL (0.3-1.0); BUN - UREA NITROGEN 4 mg/dL (7-25); CALCIUM SERUM 8.9 mg/dL (8.6-10.3); CARBON DIOXIDE 25.4 mEq/L (21.0-31.0); CHLORIDE 99 mEq/L (98-107); CREATININE - SERUM 0.6 mg/dL (0.7-1.3); GFR AFRICAN-AMERICAN > 60.0 ml/min (>90); GFR NON AFRICAN-AMERICAN > 60.0 ml/min; GLUCOSE 119 mg/dL (70-105); HEMATOCRIT 45.4 % (41.0-60); HEMOGLOBIN 15.4 gm/dL (12-16); LIPASE 52 U/L (11-82); MEAN CORPUSCULAR HEMOGLOBIN 33.2 pg (26.0-30.0); MEAN CORPUSCULAR HGB CONC 33.8 pg (28.0-36.0); MEAN PLATELET VOLUME 7.5 fl; PLATELET COUNT 152 Th/cmm (150-400); POTASSIUM SERUM 3.2 mEq/L (3.5-5.1); RED BLOOD COUNT 4.63 Mil/cmm (4.30-5.70); SGOT 207 U/L (13-39); SGPT/ALT 66 U/L (7-52); SODIUM SERUM 137 mEq/L (136-145); TOTAL PROTEIN,SERUM 7.6 gm/dL (6.0-8.3); WHITE BLOOD COUNT 5.9 Th/cmm (4.8-10.8)
[2018-03-07 02:41] LABS: URINE SOURCE CLEAN C
[2018-03-07 02:43] LABS: URINE BILIRUBIN NEGATIVE (NEGATIVE); URINE BLOOD NEGATIVE (NEGATIVE); URINE GLUCOSE (UA) NEGATIVE (NEGATIVE); URINE KETONE NEGATIVE (NEGATIVE); URINE LEUKOCYTE ESTERASE NEGATIVE (NEGATIVE); URINE NITRATE NEGATIVE (NEGATIVE); URINE PROTEIN NEGATIVE (NEGATIVE); URINE UROBILINOGEN 0.2 E.U./dL (0.2 - 1.0)
[2018-03-07 02:45] LABS: URINE CLARITY CLEAR (CLEAR); URINE COLOR YELLOW
[2018-03-07 02:46] LABS: URINE MICROSCOPIC INDICATED? NO
[2018-03-07] MEDS ORDERED: Potassium Chloride 20 mEq ER Tab PO ONE ×2 (03:02→03:03)
[2018-03-07 03:33] LABS: BAND NEUTROPHILE 3 % (0-10); EOSINOPHIL 1 % (0-5); LYMPHOCYTE 27 % (20-50); MONOCYTE 11 % (2-10); NEUTROPHILS 58 % (40-80); PLATELET ESTIMATE ADEQUATE (NORMAL)
--- NOTE | 2018-03-07 08:17 | Diagnostic Imaging Report ---
Exam: CT examination of the pelvis. HISTORY: Abdominal pain. Total DLP equals 559 CTDI equals 10.1 Findings: Multiple contiguous thin section of the abdomen pelvis obtained from lower thorax to pubic symphysis without administration of intravenous or oral contrast material, compared to prior study 02/08/2018 The study demonstrates normal aeration of lung parenchyma the bases. There is evidence for hepatosplenomegaly with fatty infiltration of liver parenchyma throughout. The pancreas is intact. The gallbladder is distended, there is evidence of sludge and calculi in the most dependent portion of gallbladder.. The kidneys demonstrate no evidence of obstructive uropathy or nephrolithiasis. The appendix is intact. No free fluid is noted. There is no evidence of diverticular disease of diverticulitis. The urinary bladder is intact. Bony structures demonstrate no evidence for lytic or blastic changes. IMPRESSION: Unchanged appearance of gallbladder distention, sludge and calculi suggestive cholelithiasis. Hepatosplenomegaly, fatty infiltration of liver parenchyma throughout.
== END 2018-03-07 03:05 | disposition home or self-care (01) ==
LOC: ER 01:16
DX: R10.13 Epigastric pain (principal); R11.2 Nausea with vomiting, unspecified; Z88.2 Allergy status to sulfonamides
CPT/HCPCS: 99285; 96374; 96375; 74176; 36415; 85007; 85025; 81003; 82150; 83690; 80053; J1885; J2405

== ENCOUNTER 2018-05-20 12:13 | Emergency (ER) | payer MEDICAID ==
[2018-05-20] MEDS ORDERED: Sodium Chloride 0.9% 1,000 ML IV ONE (12:37)
--- NOTE | 2018-05-20 13:13 | Diagnostic Imaging Report ---
CHEST X-RAY: AP view INDICATION: pain COMPARISON: None FINDINGS: There is mild elevation of the right hemidiaphragm There is no focal consolidation or pleural effusions The heart is normal in size. The osseous structures demonstrate no acute abnormalities. IMPRESSION: No focal airspace consolidation identified.
[2018-05-20 13:24] LABS: HEMATOCRIT 49.6 % (41.0-60); MEAN CELL VOLUME 96.8 fl (80-99); MEAN CORPUSCULAR HEMOGLOBIN 33.2 pg (26.0-30.0); MEAN CORPUSCULAR HGB CONC 34.3 pg (28.0-36.0); MEAN PLATELET VOLUME 7.5 fl; RED BLOOD COUNT 5.12 Mil/cmm (4.30-5.70); RED CELL DISTRIBUTION WIDTH 12.2 % (11.5-20.0); WHITE BLOOD COUNT 4.2 Th/cmm (4.8-10.8)
[2018-05-20 13:25] LABS: URINE SOURCE RANDOM
[2018-05-20 13:28] LABS: URINE BILIRUBIN SMALL (NEGATIVE); URINE BLOOD TRACE (NEGATIVE); URINE GLUCOSE (UA) 100 mg/dL (NEGATIVE); URINE KETONE NEGATIVE (NEGATIVE); URINE LEUKOCYTE ESTERASE NEGATIVE (NEGATIVE); URINE MICROSCOPIC INDICATED? YES; URINE NITRATE NEGATIVE (NEGATIVE); URINE PROTEIN 100 mg/dL (NEGATIVE)
[2018-05-20 13:31] LABS: INR 1.2 (0.5-1.4); PROTHROMBIN TIME (TEST) 12.4 SECONDS (9.5-11.5)
--- NOTE | 2018-05-20 13:31 | Diagnostic Imaging Report ---
CT abdomen and pelvis without intravenous contrast Indication: Abdominal pain Comparison: CT abdomen and pelvis on 03/07/2018, study was also compared abdominal ultrasound 02/20/2018 Technique: Axial images were obtained from the lung bases to the bilateral proximal femurs without IV contrast. Coronal reconstructions were made. total DLP: 559, CTDI10.3 FINDINGS: Hypoventilatory atelectatic changes of the lung bases are noted. Assessment of the solid organs is limited due to lack of IV contrast. There is diffuse fatty infiltration of the liver. No focal hepatic or splenic lesions. Distended gallbladder is noted. There may be gallbladder sludge. There appear to be a gallstone. No focal pancreatic or adrenal lesions. No evidence of hydronephrosis or nephrolithiasis. There is urinary bladder wall thickening. No evidence of bowel obstruction. Minimal diverticulosis is noted without diverticulitis. No appendicitis. The appendix tip is seen adjacent to the right lobe of the liver. No free air or free fluid. The osseous structures demonstrate no acute abnormalities. IMPRESSION: No evidence of acute appendicitis. Distended gallbladder with likely a gallstone gallbladder sludge. Ultrasound would further clarify. Urinary bladder wall thickening which may be due to underlying inflammatory process. Minimal diverticulosis without diverticulitis. Hepatic steatosis.
[2018-05-20 13:36] LABS: ALBUMIN 4.1 gm/dL (4.2-5.5); ALKALINE PHOSPHATASE 111 U/L (34-104); AMYLASE SERUM 72 U/L (29-103); ANION GAP 18.3 (7.0-16.0); BILIRUBIN,TOTAL 2.2 mg/dL (0.3-1.0); BUN - UREA NITROGEN 8 mg/dL (7-25); CALCIUM SERUM 9.4 mg/dL (8.6-10.3); CARBON DIOXIDE 26.3 mEq/L (21.0-31.0); CHLORIDE 97 mEq/L (98-107); CHOLESTEROL 218 mg/dL (<200); CREATININE - SERUM 0.5 mg/dL (0.7-1.3); CREATININE KINASE 178 U/L (30-223); GFR AFRICAN-AMERICAN > 60.0 ml/min (>90); GFR NON AFRICAN-AMERICAN > 60.0 ml/min; GLUCOSE 131 mg/dL (70-105); HDL -HIGH DENSITY LIPOPROTEIN 66 mg/dL (23-92); LIPASE 42 U/L (11-82); POTASSIUM SERUM 3.6 mEq/L (3.5-5.1); SGOT 174 U/L (13-39); SGPT/ALT 55 U/L (7-52); SODIUM SERUM 138 mEq/L (136-145); TOTAL PROTEIN,SERUM 8.3 gm/dL (6.0-8.3); TRIGLYCERIDES 104 mg/dL (<150)
[2018-05-20 13:41] LABS: PLATELET COUNT 49 Th/cmm (150-400)
[2018-05-20 13:49] LABS: URINE COLOR YELLOW
[2018-05-20 13:51] LABS: URINE CLARITY HAZY (CLEAR); URINE RBC NONE SEEN /hpf (0-5); URINE WBC 0-2 /hpf (0-5)
[2018-05-20] MEDS ORDERED: Multivitamin Inj 10 ML, Thiamine HCL 100 MG, Magnesium Sulfate 2 GM, Folic Acid 1 MG in... IV ONE (13:51)
[2018-05-20 13:52] LABS: URINE BACTERIA OCCASIONAL /hpf (NONE SEEN); URINE EPITHELIAL CELLS NONE SEEN /lpf (FEW)
[2018-05-20] MEDS ORDERED: Thiamine 100 mg/mL 2mL Vial ONE (14:02)
[2018-05-20 14:03] LABS: DDIMER QUANT 173 ng/mL (100-400)
[2018-05-20] MEDS ORDERED: Mag Sulfate 2gm/50mL Premix 2 GM/50 ML BAG IV ONE (14:04)
[2018-05-20 14:06] LABS: BAND NEUTROPHILE 0 % (0-10); EOSINOPHIL 2 % (0-5); LYMPHOCYTE 26 % (20-50); MONOCYTE 10 % (2-10); NEUTROPHILS 62 % (40-80); PLATELET ESTIMATE DECREASED PLATELETS (NORMAL)
[2018-05-20] MEDS ORDERED: Magnesium Sulfate 1 gm/2 mL 2mL Vial IV ONE (14:06)
[2018-05-20] MEDS ORDERED: Multivitamin Inj 10 mL Vial IV ONE (14:09)
--- NOTE | 2018-05-20 14:25 | ED Physician Chart ---
ED Chief Complaint/HPI - Patient Information Date Seen:: 05/20/18 Time Seen:: 12:20 Chief Complaint:: Abdominal Pain History of Present Illness:: onset x 3 days of intermittent, crampy epigastric abdominal pain, hematemesis, N /V/D, and ETOH abuse; pt denies trauma, LOC, ALOC, AMS, H/As, S/T, neck pain, cough, C/P, SOB, A/C, fever, chills, or urinary s/s Allergies:: Allergies Allergy/AdvReac Type Severity Reaction Status Date / Time Sulfa (Sulfonamide Allergy Verified 02/05/18 15:32 Antibiotics) Vitals:: Vital Signs - 8 hr 05/20/18 12:22 Temp 98.5 F HR 92 RR 18 BP 132/83 O2 Sat % 95 Historian:: Patient Review:: Nurse's Note Reviewed, Old Chart Reviewed ED Review of Systems - Review of Systems General/Constitutional: No fever, No chills, No weight loss, No weakness, No diaphoresis, No edema, No loss of appetite Skin: No skin lesions, No rash, No bruising Head: No headache, No light-headedness Eyes: No loss of vision, No pain, No diplopia ENT: No earache, No nasal drainage, No sore throat, No tinnitus Neck: No neck pain, No swelling, No thyromegaly, No stiffness, No mass noted Cardio Vascular: No chest pain, No palpitations, No PND, No orthopnea, No edema Pulmonary: No SOB, No cough, No sputum, No wheezing GI: Nausea, Vomiting, Diarrhea, Pain, Melena, No hematochezia, No constipation, Hematemesis G/U: No dysuria, No frequency, No hematuria, No nacturia Musculoskeletal: No bone or joint pain, No back pain, No muscle pain Endocrine: No polyuria, No polydipsia Psychiatric: No prior psych history, No depression, No anxiety, No suicidal ideation, No homicidal ideation, No auditory hallucination, No visual hallucination Hematopoietic: No bruising, No lymphadenopathy Allergic/Immuno: No urticaria, No angioedema Neurological: No syncope, No focal symptoms, No weakness, No paresthesia, No headache, No seizure, No dizziness, No confusion, No vertigo ED Past Medical History - Past Medical History Obtainable: Yes Past Medical History: No significant medical hx Family History: HTN Social History: Smoker, Alcohol, No Drug Use, Single Surgical History: None Psychiatricy History: None Medication: Reviewed Family Medical History - Family Member Father History Unknown: Yes Ethnicity: Living Status: Still Living Hx Family Cancer: No Hx Family Coronary Artery Disease: No Hx Family Congestive Heart Failure: No Hx Family Hypertension: Yes Hx Family Stroke: No Hx Family Diabetes: Yes Hx Family Seizures: No Hx Family Dementia: No Hx Family AIDS: No Hx Family HIV: No Hx Family COPD: No Hx Family Hepatitis: No Hx Family Psychiatric Problems: No Hx Family Tuberculosis: No ED Physical Exam - Physical Examination General/Constitutional: Awake, Well-developed, well-nourished, Alert, No distress, GCS 15, Non-toxic appearing, Ambulatory Head: Atraumatic Eyes: Lids, conjuctiva normal, PERRL, EOMI Skin: Nl inspection, No rash, No skin lesions, No ecchymosis, Well hydrated, No lymphadenopathy ENMT: External ears, nose nl, TM canals nl, Nasal exam nl, Lips, teeth, gums nl , Oropharynx nl, Tonsils nl Neck: Nontender, Full ROM w/o pain, No JVD, No nuchal rigidity, No bruit, No mass, No stridor Respiratory: Nl effort/Exclusion, Clear to Auscultation, No Wheeze/Rhonchi/Rales Cardio Vascular: RRR, No murmur, gallop, rubs, NL S1 S2, Carotid/Femoral/Distal pulses equal bilaterally GI: No tenderness/rebounding/guarding, No organomegaly, No hernia, Normal BS's, Nondistended, No mass/bruits, No McBurney tenderness, Rectum exam nl : No CVA tenderness Extremities: No tenderness or effusion, Full ROM, normal strength in all extremities, No edema, Normal digits & nails Neuro/Psych: Alert/oriented, DTR's symmetric, Normal sensory exam, Normal motor strength, Judgement/insight normal, Mood normal, Normal gait, No focal deficits Misc: Normal back, No paraspinal tenderness ED Labs/Radiology/EKG Results - Lab Results Results: Laboratory Tests 05/20/18 05/20/18 05/20/18 12:40 13:10 13:10 WBC 4.2 L RBC 5.12 Hgb 17.0 Hct 49.6 MCV 96.8 MCH 33.2 H MCHC Differential 34.3 RDW 12.2 Plt Count 49 L MPV 7.5 Add Manual Diff YES Band Neutrophils % 0 Neutrophils (Manual) 62 Lymphocytes 26 Monocytes 10 Eosinophils 2 Platelet Estimate DECREASED PLATELETS PT 12.4 H INR 1.20 D-Dimer Sodium Potassium Chloride Carbon Dioxide Anion Gap BUN Creatinine Est GFR ( Amer) Est GFR (Non-Af Amer) BUN/Creatinine Ratio Glucose Calcium Total Bilirubin AST ALT Alkaline Phosphatase Creatine Kinase Troponin I B-Natriuretic Peptide Total Protein Albumin Globulin Albumin/Globulin Ratio Triglycerides Cholesterol LDL Cholesterol Direct HDL Cholesterol Amylase Lipase Urine Source RANDOM Urine Color YELLOW Urine Clarity HAZY Urine pH 6.0 Ur Specific Celeste 1.020 Urine Protein 100 H Urine Glucose (UA) 100 H Urine Ketones NEGATIVE Urine Blood TRACE Urine Nitrate NEGATIVE Urine Bilirubin SMALL H Urine Urobilinogen 4.0 H Ur Leukocyte Esterase NEGATIVE Urine RBC NONE SEEN Urine WBC 0-2 Ur Epithelial Cells NONE SEEN Urine Bacteria OCCASIONAL Ethyl Alcohol 05/20/18 05/20/18 05/20/18 13:10 13:10 13:10 WBC RBC Hgb Hct MCV MCH MCHC Differential RDW Plt Count MPV Add Manual Diff Band Neutrophils % Neutrophils (Manual) Lymphocytes Monocytes Eosinophils Platelet Estimate PT INR D-Dimer 173 Sodium 138 Potassium 3.6 Chloride 97 L Carbon Dioxide 26.3 Anion Gap 18.3 H BUN 8 Creatinine 0.5 L Est GFR ( Amer) > 60.0 Est GFR (Non-Af Amer) > 60.0 BUN/Creatinine Ratio 16.0 Glucose 131 H Calcium 9.4 Total Bilirubin 2.2 H AST 174 H ALT 55 H Alkaline Phosphatase 111 H Creatine Kinase 178 Troponin I < 0.01 L B-Natriuretic Peptide < 5.0 L Total Protein 8.3 Albumin 4.1 L Globulin 4.2 Albumin/Globulin Ratio 1.0 Triglycerides 104 Cholesterol 218 H LDL Cholesterol Direct 146 HDL Cholesterol 66 Amylase 72 Lipase 42 Urine Source Urine Color Urine Clarity Urine pH Ur Specific Celeste Urine Protein Urine Glucose (UA) Urine Ketones Urine Blood Urine Nitrate Urine Bilirubin Urine Urobilinogen Ur Leukocyte Esterase Urine RBC Urine WBC Ur Epithelial Cells Urine Bacteria Ethyl Alcohol 376 H Comments:: Reviewed - Radiology Results Comments:: + Gallstones; Diveerticulosis - EKG Interpretations EKG Time:: 14:00 Rate & Rhythm: 89; NSR Comments:: non-specific st-t changes ED Septic Shock - . Is Septic Shock (SBP<90, OR Lactate>4 mmol\L) present?: No - <6hrs of presentation: Vital Signs: Vital Signs - 8 hr 05/20/18 12:22 Temp 98.5 F HR 92 RR 18 BP 132/83 O2 Sat % 95 ED Reassessment (Disposition) - Reassessment Reassessment Condition:: Improved - Diagnosis Diagnosis:: Dx: Abdominal Pain; Hematemesis; N/V/D; UGI Bleed; Alcohol Intoxication; Substance Abuse; Cholelithiasis; Diverticulosis; Leukopenia; Thrombocytopenia; Elevated Liver Function Tests; UTI - Aftercare/Follow up Instructions Aftercare/Follow-Up Instructions:: Counseled pt regarding lab results/diagnosis & need follow up, Counseled pt & family regarding lab results/diagnosis & need follow up - Patient Disposition Discharge/Transfer:: Acute Care w/in this hosp Accepting Physician:: Dr. Bustos Time Called:: 1400 Time Responded:: 14:00 Admitted to:: Telemetry Spoke to:: Dr. Bustos Admitting Medical Physician:: Dr. Bustos Condition at Disposition:: Stable, Improved
[2018-05-20 15:10] LABS: AMPHETAMINE URINE NEGATIVE (NEGATIVE); BARBITURATES URINE NEGATIVE (NEGATIVE); BENZODIAZEPINES QUAL URINE NEGATIVE (NEGATIVE); COCAINE METABOLITE QUAL URINE NEGATIVE (NEGATIVE); METHADONE URINE NEGATIVE (NEGATIVE); METHAMPHETAMINES QUAL URINE NEGATIVE (NEGATIVE); OPIATES (MORPHINE) QUAL. URINE NEGATIVE (NEGATIVE); PHENCYCLIDINE (PCP) URINE NEGATIVE (NEGATIVE); TRICYCLICS (TCA) QUAL. URINE NEGATIVE (NEGATIVE)
[2018-05-20 15:11] LABS: CANNABINOID THC NEGATIVE (NEGATIVE)
[2018-05-20] MEDS ORDERED: cefTRIAXone 1 GM in Sodium Chloride 0.9% 50 ML IV ONE (15:36)
== END 2018-05-20 16:00 | disposition left against medical advice (07) ==
LOC: ER 12:13
DX: K92.2 Gastrointestinal hemorrhage, unspecified (principal); K92.0 Hematemesis; K80.20 Calculus of gallbladder without cholecystitis without obstruction; K57.90 Diverticulosis of intestine, part unspecified, without perforation or abscess without bleeding; F10.129 Alcohol abuse with intoxication, unspecified; N39.0 Urinary tract infection, site not specified; D69.6 Thrombocytopenia, unspecified; D72.819 Decreased white blood cell count, unspecified; R94.5 Abnormal results of liver function studies; F17.200 Nicotine dependence, unspecified, uncomplicated; Z88.2 Allergy status to sulfonamides
CPT/HCPCS: 99284; 96365; 96366; 96375; 94760; 93005; 71045; 74176; 84484; 83880; 36415; 85379; 80307; 85007; 85025; 85610; 81001; 80320; 82150; 82550; 83690; 80053; 80061; C9113; J3475; J2405; J3411; J7030; X6226; X6598; Z7502

== ENCOUNTER 2018-12-27 13:35 | Emergency (ER) | payer MEDICAID ==
--- NOTE | 2018-12-27 14:00 | ED Physician Chart ---
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 on back of the head had ct head and had laceration repair the back of the head and today has been self medicating and drank much today pt with several episodes of vomiting and stomach pains Allergies:: Allergies Allergy/AdvReac Type Severity Reaction Status Date / Time Sulfa (Sulfonamide Allergy Verified 12/27/18 13:38 Antibiotics) Vitals:: Vital Signs - 8 hr 12/27/18 13:41 Temp 98.3 F HR 108 RR 17 BP 124/77 O2 Sat % 94 ED Review of Systems - Review of Systems General/Constitutional: No fever Skin: Other (scar back of head well healed) Head: No headache Eyes: No loss of vision ENT: No earache Neck: Neck pain Cardio Vascular: No chest pain Pulmonary: No SOB GI: Nausea, Vomiting Musculoskeletal: Bone or joint pain Endocrine: No polyuria Neurological: No syncope, Focal symptoms, Weakness ED Past Medical History - Past Medical History Past Medical History: Other (cirrhosis) Family Medical History - Family Member Father History Unknown: Yes Ethnicity: Living Status: Still Living Hx Family Cancer: No Hx Family Coronary Artery Disease: No Hx Family Congestive Heart Failure: No Hx Family Hypertension: Yes Hx Family Stroke: No Hx Family Diabetes: Yes Hx Family Seizures: No Hx Family Dementia: No Hx Family AIDS: No Hx Family HIV: No Hx Family COPD: No Hx Family Hepatitis: No Hx Family Psychiatric Problems: No Hx Family Tuberculosis: No ED Physical Exam - Physical Examination General/Constitutional: Awake Eyes: Lids, conjuctiva normal Other Skin comments:: scar post occipital scar well healed ENMT: External ears, nose nl Other Neck comments:: pain with movement rotation neck Cardio Vascular: No murmur, gallop, rubs Other GI comments:: epigastric abd tenderness Extremities: Full ROM Neuro/Psych: Alert/oriented ED Septic Shock - . Is Septic Shock (SBP<90, OR Lactate>4 mmol\L) present?: No - <6hrs of presentation: Vital Signs: Vital Signs - 8 hr 12/27/18 13:41 Temp 98.3 F HR 108 RR 17 BP 124/77 O2 Sat % 94 ED Reassessment (Disposition) - Reassessment Reassessment:: abuse cirrhosis vomiting - Patient Disposition Condition at Disposition:: Stable
[2018-12-27 14:32] LABS: % BASOPHILS 0.5 % (0.0-2.0); % EOSINOPHILS 0.5 % (0.0-5.0); % LYMPHOCYTES 24.5 % (20.0-50.0); % MONOCYTES 7.6 % (2.0-10.0); % NEUTROPHILS 66.9 % (40.0-80.0); HEMATOCRIT 42.4 % (41.0-60); HEMOGLOBIN 14.1 gm/dL (12-16); LYMPHOCYTE ABSOLUTE 1.3 Th/cmm (1.5-3.0); MEAN CELL VOLUME 97.2 fl (80-99); MEAN CORPUSCULAR HEMOGLOBIN 32.3 pg (26.0-30.0); MEAN CORPUSCULAR HGB CONC 33.3 pg (28.0-36.0); MONOCYTE ABSOLUTE 0.4 Th/cmm (0.3-1.0); NEUTROPHILE ABSOLUTE 3.5 Th/cmm (1.8-8.0); PLATELET COUNT 39 Th/cmm (150-400); RED BLOOD COUNT 4.36 Mil/cmm (4.30-5.70); RED CELL DISTRIBUTION WIDTH 12.5 % (11.5-20.0); WHITE BLOOD COUNT 5.2 Th/cmm (4.8-10.8)
[2018-12-27 14:44] LABS: ALB/GLOB RATIO 1.1 (1.0-1.8); ALKALINE PHOSPHATASE 104 U/L (34-104); ANION GAP 14.9 (7.0-16.0); BILIRUBIN,TOTAL 3.4 mg/dL (0.3-1.0); BUN - UREA NITROGEN 7 mg/dL (7-25); CALCIUM SERUM 9.2 mg/dL (8.6-10.3); CARBON DIOXIDE 28.7 mEq/L (21.0-31.0); CHLORIDE 103 mEq/L (98-107); CREATININE - SERUM 0.5 mg/dL (0.7-1.3); GFR AFRICAN-AMERICAN > 60.0 ml/min (>90); GFR NON AFRICAN-AMERICAN > 60.0 ml/min; GLUCOSE 111 mg/dL (70-105); POTASSIUM SERUM 3.6 mEq/L (3.5-5.1); SGOT 141 U/L (13-39); SGPT/ALT 39 U/L (7-52); SODIUM SERUM 143 mEq/L (136-145); TOTAL PROTEIN,SERUM 7.8 gm/dL (6.0-8.3)
--- NOTE | 2018-12-28 08:30 | Diagnostic Imaging Report ---
Exam: CT examination abdomen pelvis. HISTORY: Vomiting Total DLP equals 577 CTDI equals 10.0 COMPARISON 05/20/2018 Findings: Multiple contiguous thin section of the abdomen pelvis obtained from lower thorax to pubic symphysis without the administration of oral or intravenous contrast material The study demonstrates hepatosplenomegaly with the fatty infiltration liver parenchyma. There is evidence of distended gallbladder with cholelithiasis. The kidneys are intact. There is no evidence of obstructive uropathy or nephrolithiasis. The pancreas is normal. The visualized appendix is intact. Terminal ileum wall thickening. Question inflammatory changes cannot be excluded. No free fluid is noted. The bowel gas diffusion nonspecific. The urinary bladder is distended. Bony structures demonstrate no evidence for lytic or blastic lesions. IMPRESSION: Hepatosplenomegaly, fatty infiltration liver parenchyma. Distended gallbladder, sludge, cholelithiasis Terminal ileum wall thickening, inflammatory changes cannot be excluded. Distended urinary bladder
--- NOTE | 2018-12-28 08:32 | Diagnostic Imaging Report ---
CT scan of the brain without contrast History: Trauma Total DLP equals 731 CTDI equals 37.4 Axial sections were obtained from the base of the skull to the vertex. There is a normal ventricular system size. No focal parenchymal lesions are seen. No evidence of any mass effect or shift of midline structures. No extra-axial masses or abnormal fluid collections. Impression: Negative examination
== END 2018-12-27 14:55 | disposition left against medical advice (07) ==
LOC: ER 13:35
DX: F10.10 Alcohol abuse, uncomplicated (principal); K74.60 Unspecified cirrhosis of liver; R11.2 Nausea with vomiting, unspecified; R10.13 Epigastric pain; Y90.9 Presence of alcohol in blood, level not specified; Z88.1 Allergy status to other antibiotic agents; Z88.2 Allergy status to sulfonamides
CPT/HCPCS: 36415-UA; 70450-TC; 80053-TC; 80320-TC; 82140-TC; 83605; 85025-TC

== ENCOUNTER 2018-12-28 09:32 | Emergency (ER) | payer MEDICAID ==
--- NOTE | 2018-12-28 10:05 | ED Physician Chart ---
ED Chief Complaint/HPI - Patient Information Date Seen:: 12/28/18 Time Seen:: 09:32 Chief Complaint:: Pt is intoxicated with ethanol. History of Present Illness:: Pt came in by private auto because he had much ethanol and has had recurrent nausea/vomiting. Pt has had N/V while he is at this ER with vomitus consists of gastric content and yellow fluid. No hematemesis. Pt prefers to sleep and is not fully cooperative; thus, H & P are limited. Pt was seen yesterday at this ER with CT of abdomen/pelvis that revealed "hepatosplenomegaly, fatty infiltration liver parenchyma. Distended gallbladder, sludge, cholelithiasis." Head CT was also done yesterday that was negative. Official reports per Dr. Steven Villalba, radiologist. Allergies:: Allergies Allergy/AdvReac Type Severity Reaction Status Date / Time chlordiazepoxide Allergy Verified 12/28/18 09:54 [From Librium] Sulfa (Sulfonamide Allergy Verified 12/27/18 13:38 Antibiotics) Vitals:: Vital Signs - 8 hr 12/28/18 09:54 Temp 98.2 F HR 90 RR 21 BP 113/76 O2 Sat % 94 Historian:: Patient Family MD/PCP:: unknown. LMP:: N/A Review:: Nurse's Note Reviewed ED Review of Systems - Review of Systems General/Constitutional: Other (Pt does not cooperate for ROS) ED Past Medical History - Past Medical History Past Medical History: Other (Pt does not cooperate to provide info on PMH.) Family History: Other (Pt does not cooperate to provide info on FHx.) Social History: Other (Pt does not cooperate to provide info on SHx.) Surgical History: other (Pt does not cooperate to provide info on Surgical Hx.) Medication: Reviewed Family Medical History - Family Member Father History Unknown: Yes Ethnicity: Living Status: Still Living Hx Family Cancer: No Hx Family Coronary Artery Disease: No Hx Family Congestive Heart Failure: No Hx Family Hypertension: Yes Hx Family Stroke: No Hx Family Diabetes: Yes Hx Family Seizures: No Hx Family Dementia: No Hx Family AIDS: No Hx Family HIV: No Hx Family COPD: No Hx Family Hepatitis: No Hx Family Psychiatric Problems: No Hx Family Tuberculosis: No ED Physical Exam - Physical Examination General/Constitutional: Awake, Well-developed, well-nourished (male), Alert, No distress Other Gen/Cons comments:: Pt breathes comfortably and speaks clearly. Pt is not fully cooperative and prefers to sleep. Head: Atraumatic (A clean healing transverse wound, approx. 2 cm, noticed in R occipital scalp.) Eyes: Lids, conjuctiva normal, PERRL, EOMI Skin: Nl inspection, Well hydrated, No lymphadenopathy ENMT: External ears, nose nl, Nasal exam nl, Oropharynx nl Neck: Nontender, Full ROM w/o pain, No nuchal rigidity, No mass Respiratory: Nl effort/Exclusion, Clear to Auscultation, No Wheeze/Rhonchi/Rales Cardio Vascular: RRR, No murmur, gallop, rubs GI: Normal BS's, Nondistended, No mass/bruits, No McBurney tenderness Other GI comments:: Abdomen is soft. Mild tenderness at epigastric region. Negative Medina's, Layton , and Briseno-Rae's signs. Liver is nontender and appears to be enlarged. Extremities: No tenderness or effusion, No edema Neuro/Psych: Alert/oriented (knows his name and that he is in a hospital.) Other Neuro/Psych comments:: Spontaneous movements noticed in all 4 extremities. Pt does not cooperate for full neurological exam. ED Labs/Radiology/EKG Results - Lab Results Results: Laboratory Tests 12/28/18 12/28/18 12/28/18 10:00 10:00 10:00 WBC 4.7 L RBC 4.35 Hgb 14.0 Hct 42.4 MCV 97.5 MCH 32.2 H MCHC Differential 33.0 RDW 12.7 Plt Count 33 L MPV 8.8 Add Manual Diff YES Band Neutrophils % 1 Neutrophils (Manual) 64 Lymphocytes 24 Monocytes 11 H Eosinophils 0 Basophils 0 Platelet Estimate DECREASED PLATELETS PT 15.2 H INR 1.49 H PTT (Actin FS) 34.3 Sodium 137 Potassium 3.3 L Chloride 99 Carbon Dioxide 28.8 Anion Gap 12.5 BUN 8 Creatinine 0.5 L Est GFR ( Amer) > 60.0 Est GFR (Non-Af Amer) > 60.0 BUN/Creatinine Ratio 16.0 Glucose 157 H Calcium 8.9 Total Bilirubin 3.8 H AST 142 H ALT 37 Alkaline Phosphatase 103 Total Protein 8.4 H Albumin 4.0 L Globulin 4.4 Albumin/Globulin Ratio 0.9 L Amylase 159 H Lipase 47 Ethyl Alcohol 402 H - Radiology Results Results: Abdominal sonogram (Preliminary report): Hepatomegaly. + Gallstone/sludge. Wall : 0.4 cm ED Septic Shock - . Is Septic Shock (SBP<90, OR Lactate>4 mmol\\L) present?: No - <6hrs of presentation: Vital Signs: Vital Signs - 8 hr 12/28/ 09:54 Temp 98.2 F HR 90 RR 21 BP 113/76 O2 Sat % 94 ED Reassessment (Disposition) - Reassessment Reassessment:: 1215 Pt has been stable. No new complaint or findings. 1245 I was just informed by nursing staff that pt had just walked out accompanied with a family member. Pt did not wait to discuss with me before his departure. Pt eloped without completion of this ER visit. Reassessment Condition:: Improved - Diagnosis Diagnosis:: Ethanol intoxication. Alcoholic liver disease with coagulopathy, hyperbilirubinemia. Epigastric pain c/w acute gastritis without sign of active upper gastrointestinal bleeding. Pt's vomitus today consists of nonbloody gastric content. Cholelithiasis. Mild hypokalemia. Mild hyperglycemia. - Patient Disposition Discharge/Transfer:: Elope/AWOL Time:: 12:40 Condition at Disposition:: Stable, Improved
[2018-12-28] MEDS ORDERED: Folic Acid 1 MG/0.2 ML SYR IVP ONE (10:07)
[2018-12-28] MEDS ORDERED: Multivitamin Inj 10 ML, Thiamine HCL 100 MG in Sodium Chloride 0.9% 1,000 ML IV ONE (10:07)
[2018-12-28] MEDS ORDERED: Mag Sulfate 2gm/50mL Premix 2 GM/50 ML BAG IV ONE ×2 (10:07→10:23)
[2018-12-28 10:50] LABS: HEMATOCRIT 42.4 % (41.0-60); INR 1.49 (0.5-1.4); MEAN CELL VOLUME 97.5 fl (80-99); MEAN CORPUSCULAR HEMOGLOBIN 32.2 pg (26.0-30.0); RED BLOOD COUNT 4.35 Mil/cmm (4.30-5.70); RED CELL DISTRIBUTION WIDTH 12.7 % (11.5-20.0); WHITE BLOOD COUNT 4.7 Th/cmm (4.8-10.8)
[2018-12-28 10:52] LABS: PLATELET COUNT 33 Th/cmm (150-400)
[2018-12-28 10:54] LABS: ALB/GLOB RATIO 0.9 (1.0-1.8); ALKALINE PHOSPHATASE 103 U/L (34-104); AMYLASE SERUM 159 U/L (29-103); ANION GAP 12.5 (7.0-16.0); BILIRUBIN,TOTAL 3.8 mg/dL (0.3-1.0); BUN - UREA NITROGEN 8 mg/dL (7-25); CALCIUM SERUM 8.9 mg/dL (8.6-10.3); CARBON DIOXIDE 28.8 mEq/L (21.0-31.0); CHLORIDE 99 mEq/L (98-107); CREATININE - SERUM 0.5 mg/dL (0.7-1.3); GFR AFRICAN-AMERICAN > 60.0 ml/min (>90); GFR NON AFRICAN-AMERICAN > 60.0 ml/min; GLUCOSE 157 mg/dL (70-105); LIPASE 47 U/L (11-82); POTASSIUM SERUM 3.3 mEq/L (3.5-5.1); SGOT 142 U/L (13-39); SGPT/ALT 37 U/L (7-52); SODIUM SERUM 137 mEq/L (136-145); TOTAL PROTEIN,SERUM 8.4 gm/dL (6.0-8.3)
[2018-12-28 11:16] LABS: BAND NEUTROPHILE 1 % (0-10); BASOPHIL 0 % (0-3); EOSINOPHIL 0 % (0-5); LYMPHOCYTE 24 % (20-50); MONOCYTE 11 % (2-10); NEUTROPHILS 64 % (40-80); PLATELET ESTIMATE DECREASED PLATELETS (NORMAL)
[2018-12-28] MEDS ORDERED: Potassium Chloride 20 mEq ER Tab PO ONE (11:32)
--- NOTE | 2018-12-28 13:39 | Diagnostic Imaging Report ---
Abdominal ultrasound HISTORY: Pain The liver appears enlarged. No focal lesions. There is a markedly dilated gallbladder. There is an approximate 1.9 x 0.4 cm intraluminal echogenic density consistent with a gallstone. No biliary dilatation (common bile duct is 4 mm). Pancreas cannot be seen due to bowel gas. Right kidney appears normal. The left kidney is generous in size (13.6 x 6.2 x 5.9 cm). No focal lesions or hydronephrosis. No other retroperitoneal or intra-abdominal abnormalities. IMPRESSION: 1. Markedly dilated gallbladder without evidence of cholelithiasis 2. Hepatomegaly 3. Generous size of the left kidney. Significance should be correlated clinically.
== END 2018-12-28 12:40 | disposition left against medical advice (07) ==
LOC: ER 09:32
DX: F10.129 Alcohol abuse with intoxication, unspecified (principal); K70.9 Alcoholic liver disease, unspecified; E80.6 Other disorders of bilirubin metabolism; K29.70 Gastritis, unspecified, without bleeding; K80.20 Calculus of gallbladder without cholecystitis without obstruction; E87.6 Hypokalemia; R73.9 Hyperglycemia, unspecified; Z88.2 Allergy status to sulfonamides; Z88.8 Allergy status to other drugs, medicaments and biological substances
CPT/HCPCS: 99284; 96365; 96366; 96368; 96375; 76700; 86900; 86850; 36415; 86901; 85007; 85025; 85610; 80320; 82150; 83690; 80053; J3475; J2405; J3490; J3411; J7030; X6226; X6598

== ENCOUNTER 2019-01-03 18:10 | Emergency (ER) | payer MEDICAID ==
[2019-01-03] MEDS ORDERED: Sodium Chloride 0.9% 2,000 ML IV ONE (18:37)
--- NOTE | 2019-01-04 | ED Physician Chart ---
ED Chief Complaint/HPI - Patient Information Date Seen:: 01/03/19 Time Seen:: 18:33 Chief Complaint:: etoh abuse epigastric pain History of Present Illness:: 33 yr old male with epigastric pain shakes etoh abuse hx of schizophrenia on zyprexa no vomiting of blood no dark or tarry stools Allergies:: Allergies Allergy/AdvReac Type Severity Reaction Status Date / Time Sulfa (Sulfonamide Allergy Verified 12/27/18 13:38 Antibiotics) Vitals:: Vital Signs - 8 hr 01/03/19 01/03/19 01/03/19 18:23 18:42 20:35 Temp 98.9 F 98.6 F 98.1 F HR 122 109 114 RR 16 17 20 BP 111/72 115/75 112/75 O2 Sat % 92 97 100 ED Review of Systems - Review of Systems General/Constitutional: No fever Skin: No skin lesions Head: No headache Eyes: No loss of vision ENT: No earache Neck: No neck pain Cardio Vascular: No chest pain Pulmonary: No SOB GI: Nausea, Pain G/U: No dysuria Musculoskeletal: No bone or joint pain Endocrine: No polyuria Psychiatric: No prior psych history Hematopoietic: No bruising Allergic/Immuno: No urticaria Neurological: No syncope ED Past Medical History - Past Medical History Past Medical History: Other (etoh abuse) Psychiatricy History: Schizophrenia Family Medical History - Family Member Father History Unknown: Yes Ethnicity: Living Status: Still Living Hx Family Cancer: No Hx Family Coronary Artery Disease: No Hx Family Congestive Heart Failure: No Hx Family Hypertension: Yes Hx Family Stroke: No Hx Family Diabetes: Yes Hx Family Seizures: No Hx Family Dementia: No Hx Family AIDS: No Hx Family HIV: No Hx Family COPD: No Hx Family Hepatitis: No Hx Family Psychiatric Problems: No Hx Family Tuberculosis: No ED Physical Exam - Physical Examination General/Constitutional: Awake, Well-developed, well-nourished, Alert, No distress, GCS 15, Non-toxic appearing, Ambulatory Head: Atraumatic Eyes: Lids, conjuctiva normal, PERRL, EOMI Skin: Nl inspection, No rash, No skin lesions, No ecchymosis, Well hydrated, No lymphadenopathy ENMT: External ears, nose nl, Nasal exam nl, Lips, teeth, gums nl Neck: Nontender, Full ROM w/o pain, No JVD, No nuchal rigidity, No bruit, No mass, No stridor Respiratory: Nl effort/Exclusion, Clear to Auscultation, No Wheeze/Rhonchi/Rales Cardio Vascular: RRR, No murmur, gallop, rubs, NL S1 S2 GI: No tenderness/rebounding/guarding, No organomegaly, No hernia, Normal BS's, Nondistended, No mass/bruits, No McBurney tenderness : No CVA tenderness Extremities: No tenderness or effusion, Full ROM, normal strength in all extremities, No edema, Normal digits & nails Neuro/Psych: Alert/oriented, DTR's symmetric, Normal sensory exam, Normal motor strength, Judgement/insight normal, Mood normal, Normal gait, No focal deficits Misc: Normal back, No paraspinal tenderness ED Labs/Radiology/EKG Results - Lab Results Results: Laboratory Tests 01/03/19 18:46 Ethyl Alcohol 267 H ED Assessment - Assessment General Assessment: epigastric pain etoh abuse ED Septic Shock - . Is Septic Shock (SBP<90, OR Lactate>4 mmol\L) present?: No - <6hrs of presentation: Vital Signs: Vital Signs - 8 hr 01/03/19 01/03/19 01/03/19 18:23 18:42 20:35 Temp 98.9 F 98.6 F 98.1 F HR 122 109 114 RR 16 17 20 BP 111/72 115/75 112/75 O2 Sat % 92 97 100 ED Reassessment (Disposition) - Reassessment Reassessment:: schizophrenia etoh abuse - Diagnosis Diagnosis:: as above - Aftercare/Follow up Instructions Aftercare/Follow-Up Instructions:: Counseled pt regarding lab results/diagnosis & need follow up - Patient Disposition Discharge/Transfer:: Home Condition at Disposition:: Stable
--- NOTE | 2019-01-04 09:14 | Diagnostic Imaging Report ---
CT scan of the brain without contrast History: Headache, trauma Total DLP equals 703 CTDI equals 37.4 Axial sections were obtained from the base of the skull to the vertex. There is a normal ventricular system size. No focal parenchymal lesions are seen. No evidence of any mass effect or shift of midline structures. No extra-axial masses or abnormal fluid collections. Impression: No acute abnormalities
== END 2019-01-03 20:45 ==
LOC: ER 18:10
DX: F10.10 Alcohol abuse, uncomplicated (principal); F20.9 Schizophrenia, unspecified; R10.13 Epigastric pain; Z88.2 Allergy status to sulfonamides; Y90.8 Blood alcohol level of 240 mg/100 ml or more
CPT/HCPCS: 36415-UA; 70450-TC; 80320-TC